=== PATIENT | female | born 1965 | race Caucasian/White ===

== ENCOUNTER 2019-11-03 19:44 | Emergency (ER) | payer BC, SELFPAY ==
[2019-11-03 19:54] VITALS: BP 134/92; PULSE 86; RESP 16; TEMP 37.2; O2SAT 99
--- NOTE | 2019-11-03 19:58 | ED.SKABFB ---
HPI - Skin/Abscess/Foreign Bdy General Chief complaint: Wound/Laceration Stated complaint: laceration Time Seen by Provider: 11/03/19 19:50 Source: patient and RN notes reviewed Mode of arrival: ambulatory Limitations: no limitations History of Present Illness HPI narrative: patient presents today with laceration to left 4th finger pad from an aluminum can 20 mins prior to arrival. Last tetanus was 2012. Currently rates her pain 2/10 and complains of some mild tingling. She has tried no interventions prior to arrival. Related Data Home Medications Medication Instructions Recorded Confirmed aspirin 81 mg tablet,delayed 81 mg PO DAILY 07/28/19 11/03/19 release oxybutynin chloride 10 mg 10 mg PO DAILY 07/28/19 11/03/19 tablet,extended release 24 hr rosuvastatin 5 mg tablet 5 mg PO DAILY 07/28/19 11/03/19 Allergies Allergy/AdvReac Type Severity Reaction Status Date / Time Sulfa (Sulfonamide Allergy Mild turning Verified 11/03/19 19:48 Antibiotics) blue Review of Systems Constitutional: Constitutional: Reports no additional constitutional complaints Eyes: Eyes: Reports no additional eye complaints ENT: Reports system reviewed and no additional complaints, except as documented Cardiovascular: Cardiovascular: Reports no additional cardiovascular complaints Respiratory: Respiratory: Reports no additional respiratory complaints Gastrointestinal: Gastrointestinal: Reports no additional gastrointestinal complaints Genitourinary: Genitourinary: Reports no additional female genitourinary complaints Musculoskeletal: Musculoskeletal: Reports no additional musculoskeletal complaints Integumentary/Breasts: Comments: left 4th finger laceration Neurologic: Comments: tingling to left 4th finger. [facility] Past Medical History Medical History (Updated 11/03/19 @ 20:27 by Nichole Byers, [facility], ) Gastritis Mixed hyperlipidemia OAB (overactive bladder) Thrombocytosis Surgical History Surgical History (Updated 08/02/19 @ 15:49 by Ju Everett MD) Hx of hysterectomy Family History Family History (Updated 02/18/16 @ 23:19 by DOCTOR UNKNOWN) Sibling Cerebrovascular accident Mother Family history of diabetes mellitus in first degree relative Family history of malignant neoplasm of breast in first degree relative Father Family history of diabetes mellitus in first degree relative Social History Social History (Updated 07/28/19 @ 13:25 by Lydia Pino) Smoking status: Never smoker Second hand tobacco smoke exposure: No Alcohol intake: current Drinks per week: 2 Substance use: never Substance use type: does not use Gender identity (if verbalized by the patient): Female Comments All past medical, family, and surgical hx reviewed and is noncontributory to presenting complaint. See nurses notes for further documentation. Exam Const: General: healthy appearing, no acute distress and alert Nutritional Appearance: well nourished Orientation/consciousness: patient oriented x3 HENMT: Head: normal to inspection Eyes: EOM: EOMs intact bilaterally Neck: Neck: normal visual inspection Chest: Chest palpation & inspection: normal inspection of the chest Resp: Effort & Inspection: normal respiratory effort Skin: Wounds: wounds noted Other: 2.5cm full thickness linear laceration to distal left 4th finger pad without nail involvement. Distal sensation intact, capillary refill normal, normal AROM. Moderate active bleeding. Neuro: General: patient oriented x3 Speech: normal speech Extrem: General: normal to inspection (grossly normal except as documented) Psych: Affect: normal affect Attitude: cooperative Course Vital Signs Vital signs: Vital Signs Temperature 98.9 F 11/03/19 19:54 Pulse Rate 86 11/03/19 19:54 Respiratory Rate 16 11/03/19 19:54 Blood Pressure 134/92 H 11/03/19 19:54 Pulse Oximetry 99 11/03/19 19:54 Temperature 98.9
[2019-11-03] MEDS: TETANUS,DIPHTHERIA,AC PERTUSSIS ADULT (0.5 ML) BOOSTRIX IM (20:05)
== END 2019-11-03 20:31 | disposition home or self-care (01) ==
PROVIDERS: Emergency Provider Nurse Practitioner; PCP Family Medicine
DX: S61.215A Laceration without foreign body of left ring finger without damage to nail, initial encounter (principal); W26.8XXA Contact with other sharp object(s), not elsewhere classified, initial encounter; Z23 Encounter for immunization; E78.2 Mixed hyperlipidemia; N32.81 Overactive bladder; D47.3 Essential (hemorrhagic) thrombocythemia; Z79.82 Long term (current) use of aspirin
CPT/HCPCS: 12001; 90471; 90715; 99212; G0463

== ENCOUNTER 2019-11-06 09:19 | Outpatient (CLI) | payer BC, SELFPAY ==
--- NOTE | ~2019-11-06 | XR_ITS ---
EXAMINATION: XR chest 2V DATE: 11/06/2019 09:42 INDICATION: Cough TECHNIQUE: PA and lateral views of the chest are obtained. COMPARISON: 02/25/2014 FINDINGS: The lungs are free of acute opacities. There is no pleural effusion or pneumothorax. The ca rdiomediastinal silhouette is normal. There is mild thoracic spondylosis. IMPRESSION: 1. No acute cardiopulmonary abnormality. Reviewed, dictated and finalized at location A.
== END 2019-11-06 09:20 | disposition home or self-care (01) ==
PROVIDERS: PCP Family Medicine; Visit Provider Family Medicine
DX: R05 Cough (principal)
CPT/HCPCS: 71046

== ENCOUNTER 2022-04-14 18:34 | Inpatient (IN) | payer OTHER, BC, SELFPAY ==
--- NOTE | ~2022-04-14 | XR_ITS ---
XR chest 1V portable 04/15/2022 06:05 Indication: Preop. Patellar fracture. Procedure: AP portable chest Comparison: 11/06/2019 Findings: Heart size normal. No focal air space disease, pulmonary edema, pleural effusion or suspect ed pneumothorax. No acute osseous abnormality. Impression: 1: No acute cardiopulmonary disease. Reviewed, dictated and finalized at location A. Impression: 1: No acute cardiopulmonary disease.
--- NOTE | ~2022-04-14 | XR_ITS ---
XR surgery orthopedic 04/15/2022 11:14 Indication: Intraoperative fixation of patellar fracture Procedure: 11 fluoroscopic views of the patella. 128 seconds of fluoroscopy. Comparison: 04/14/2022 Findings: There are screws and cerclage wires transfixing the patella which is an anatomic alignment post reduction. Impression: 1: Anatomic alignment of the patella status post internal reduction and fixation. Reviewed, dictated and finalized at location A. Impression: 1: Anatomic alignment of the patella status post internal reduction and fixatio n.
--- NOTE | ~2022-04-14 | XR_ITS ---
XR knee RT min 4V 04/14/2022 18:54 Indication: Status post fall with deformity of the right knee Procedure: 4 views right knee Comparison: No prior studies for comparison. Findings: There is a transverse fracture of the patella with about 2.7 cm displacement. Large amount of soft tissue swelling. No tibial or fibular fractures. Femur appears to be intact. Impression: 1: Displaced transverse fracture of the patella. Reviewed, dictated and finalized at location A. Impression: 1: Displaced transverse fracture of the patella.
[2022-04-14 18:34] VITALS: BP 157/108; PULSE 67; RESP 18; TEMP 36.6; O2SAT 98
--- NOTE | 2022-04-14 19:23 | ED.LOWEXIN ---
HPI - Extremity Injury (Lower) General Chief Complaint: Extremity Injury, Lower <Lidia Roldan PA-C - Last Filed: 04/14/22 20:46> Stated Complaint: Fall, Knee Deformity <CONNER Masters Last Filed: 04/14/22 20:46> Time Seen by Provider: 04/14/22 19:09 <Lidia Roldan PA-C - Last Filed: 04/14/22 20:46> Source: patient <CONNER Masters Last Filed: 04/14/22 20:46> Mode of arrival: EMS <CONNER Masters Last Filed: 04/14/22 20:46> Limitations: no limitations <CONNER Masters Last Filed: 04/14/22 20:46> History of Present Illness HPI Narrative: This is a 57-year-old female that presents to the emergency department for right knee pain after an injury just prior to arrival. Reports she slipped and fell forward directly onto the knee. Reports swelling and pain to the area. Reports decreased range of motion. She did not hit her head or lose consciousness. Denies numbness. <CONNER Masters Last Filed: 04/14/22 20:46> Related Data Home Medications: Home Medications Medication Instructions Recorded Confirmed aspirin 81 mg tablet,delayed 81 mg PO DAILY 07/28/19 04/07/22 release (Adult Low Dose Aspirin) melatonin 10 mg capsule 10 mg PO QHS 02/01/21 04/07/22 <CONNER Masters Last Filed: 04/14/22 20:46> Allergies/Adverse Reactions: Allergies Allergy/AdvReac Type Severity Reaction Status Date / Time Sulfa (Sulfonamide Allergy Mild turning Verified 04/14/22 18:37 Antibiotics) blue <CONNER Masters Last Filed: 04/14/22 20:46> Review of Systems Review of Systems: CONSTITUTIONAL: Denies fever MUSCULOSKELETAL: Reports joint pain, and myalgia. NEUROLOGIC: Denies numbness <CONNER Masters Last Filed: 04/14/22 20:46> All systems reviewed & are unremarkable except as noted in HPI and below <Lidia Roldan PA-C - Last Filed: 04/14/22 20:46> PMFSH Past Medical History Medical History: Medical History Gastritis Mixed hyperlipidemia OAB (overactive bladder) Thrombocytosis <Lidia Roldan PA-C - Last Filed: 04/14/22 20:46> Surgical History Surgical History: Surgical History Hx of hysterectomy <Lidia Roldan PA-C - Last Filed: 04/14/22 20:46> Family History Family History: Family History Sibling Cerebrovascular accident Mother Family history of diabetes mellitus in first degree relative Family history of malignant neoplasm of breast in first degree relative Father Family history of diabetes mellitus in first degree relative <Lidia Roldan PA-C - Last Filed: 04/14/22 20:46> Social History Social History: Social History Social History: Single Smoking status: Never smoker Second hand tobacco smoke exposure: No Alcohol intake: current Alcohol use details: occasionally Substance use: never Substance use type: does not use Gender identity (if verbalized by the patient): Female Sexual Orientation (if Verbalized by the Patient): Straight or Heterosexual <CONNER Masters Last Filed: 04/14/22 20:46> Exam Narrative: GENERAL: Well-appearing, well-nourished, and in no acute distress. HEAD: Normocephalic, atraumatic. EYES: EOMI. CHEST: Clear to auscultation. No respiratory distress. No wheezes rales or rhonchi HEART: Regular rate and rhythm. No murmur heard. Normal peripheral pulses. EXTREMITIES: Patient unable to do straight leg lift or bend at the right knee. Severe edema about the right knee anteriorly. Normal DP pulse SKIN: Warm, dry, no rash. NEURO: No focal deficits. Alert and oriented x3. PSYCH: Normal mood and affect <CONNER Masters Last Filed: 04/14/22 20:46> Course KAI WHAKARURUHAU/PA Physician Supervision For thi
[2022-04-14] MEDS: HYDROcodone/acetaminophen (*CRX) 5-325 MG TABLET 1 TAB PO (19:32)
--- NOTE | 2022-04-14 19:57 | ECG_ITS ---
Measurements Intervals [place] Rate: 69 P: 69 TX: 174 QRS: 62 QRSD: 96 T: 57 QT: 401 QTc: 430 Interpretive Statements SINUS RHYTHM BASELINE ARTIFACT- I, III NORMAL ECG NO PREVIOUS ECG AVAILABLE FOR COMPARISON Electronically Signed On 04-15-2022 8:45:24 CDT by Juan Moreira D.O.
[2022-04-14 20:14] LABS: Basophils Absolute Auto 0.1 K/mm3 (0.0-0.1); Basophils Percent Auto 0.9 % (0.2-1.2); Eosinophils Absolute Auto 0.3 K/mm3 (0-0.3); Eosinophils Percent Auto 2.1 % (0-4.4); Hematocrit 42.4 % (37.0-47.0); Immature Granulocyte Absolute 0.04 K/mm3 (0.00-0.031); Immature Granulocyte Percent A 0.3 % (0-0.5); Lymphocytes Absolute Auto 2.09 K/mm3 (0.9-3.2); Lymphocytes Percent Auto 17.4 % (18.3-44.2); Mean Corpuscular Hemoglobin 29.2 pg (26-34); Mean Corpuscular Volume 88.5 fl (80-100); Mean Platelet Volume 9.9 fl (7.4-10.4); Monocytes Absolute Auto 0.5 K/mm3 (0.1-0.6); Monocytes Percent Auto 4.2 % (2.6-8.5); Neutrophils Percent Auto 75.1 % (45.5-73.1); Platelet Count Result 569 k/mm3 (150-375); Red Blood Count 4.79 M/mm3 (4.2-5.4); Red Cell Distribution Width 12.9 % (11.5-14.5)
[2022-04-14 20:23] LABS: Anion Gap 15 mmol/L (8-16); Blood Urea Nitrogen 13 mg/dL (7-17); Calcium 9.3 mg/dL (8.4-10.2); Carbon Dioxide 24 mmol/L (22-30); Chloride 96 mmol/L (98-107); Estimated CRCL calculation 87 ml/min; Estimated Glomerular Filt Rate > 60; Glucose 105 mg/dL (65-110); Potassium 3.8 mmol/L (3.4-5.0); Sodium 135 mmol/L (137-145)
--- NOTE | 2022-04-14 20:40 | PM.IMHP ---
H&P: HPI History of Present Illness Date/Time: 04/14/22 20:40 Chief Complaint: Right knee pain and deformity after a fall. Narrative: This is a pleasant 57-year-old female with essential thrombocytosis, dyslipidemia, and GERD who presented to the ED via EMS for right knee pain and deformity after a fall. Not long prior to arrival, she was leaving work and her left leg slipped forward on the wet pavement causing her to fall hard on to her right knee. She had immediate pain in the knee and did not even try to get herself up as she knew it was fractured due to obvious deformity. Right knee x-ray showed a transverse fracture of the right patella with about 2.7 cm displacement and she is being admitted in this setting for pain control and operative repair tomorrow per Dr. Almonte. She sustained no other injuries in the fall and denies head trauma and loss of consciousness. Review of Systems Review of Systems: Twelve systems were reviewed. Last week she had a fever, sinus congestion, and cough she was diagnosed with a viral illness. SARS-CoV-2 by PCR was negative at that time. Her symptoms have since improved. Less than year ago she was having some chest pain and reports having a negative stress test. She was seen by a bus and trolley dispatcher affiliated with [place] and a coronary CT was reportedly unremarkable, per patient report. She was started on a PPI for presumed GERD and her chest pain symptoms resolved. She denies exertional chest pain shortness a breath. No history of adverse reactions to anesthesia. Except as documented, all other systems were reviewed and are negative. [facility] Past Medical History Medical History (Updated 04/14/22 @ 21:21 by Kelly Blank PA-C) Essential thrombocytosis Gastroesophageal reflux disease Mixed hyperlipidemia Overactive bladder Positive cardiac stress test Negative CT coronary angiogram per patient report, done at [place]. Surgical History Surgical History (Updated 04/14/22 @ 21:21 by Kelly Blank PA-C) History of hysterectomy History of myomectomy Family History Family History Sibling Cerebrovascular accident Mother Family history of diabetes mellitus in first degree relative Family history of malignant neoplasm of breast in first degree relative Father Family history of diabetes mellitus in first degree relative Social History Social History (Updated 04/14/22 @ 21:22 by Kelly Blank PA-C) Social History: Surrogate medical decision maker: Gia Marcos. Code status: Full code. Smoking status: Never smoker Second hand tobacco smoke exposure: No Alcohol intake: current Alcohol use details: Social alcohol use in moderation. Substance use: never Substance use type: does not use Additional living arrangements comments: Lives in [place]. 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 Spiritual care concerns: No Meds Home Medications and Allergies Home Medications Medication Instructions Recorded Confirmed Type aspirin 81 mg tablet,delayed 81 mg PO DAILY 07/28/19 04/14/22 History release (Adult Low Dose Aspirin) fluticasone propionate 50 1 spray intranasal DAILY #16 grams 12/26/21 04/14/22 Rx mcg/actuation nasal spray,suspension azelastine 137 mcg (0.1 %) nasal 137 mcg (0.137 mL) intranasal Q12H 04/07/22 04/14/22 Rx spray aerosol #30 mL omeprazole 40 mg capsule,delayed 40 mg PO DAILY 04/14/22 04/14/22 History release oxybutynin chloride 10 mg 10 mg PO DAILY 04/14/22 04/14/22 History tablet,extended release 24 hr rosuvastatin 5 mg tablet 5 mg PO DAILY 04/14/22 04/14/22 History trazodone 50 mg tablet 50 mg PO HS 04/14/22 04/14/22 History Allergies Allergy/AdvReac Type Severity Reaction Status Date / Time Sulfa (Sulfonamide Allergy Mild turning Verified 04/14/22 21:24 Antibiotics) blue Vital Signs Vital Signs - 24 hr 04/14/22 18:34 04/14/22
[2022-04-14 21:01] VITALS: BP 130/79; PULSE 76; RESP 16; TEMP 36.7; O2SAT 98
[2022-04-14 21:07] LABS: INR 1.1; Prothrombin Time 13.8 Seconds (11.1-14.7)
[2022-04-14 21:08] LABS: Partial Thromboplastin Time 33.8 SECONDS (22.3-36.8)
--- NOTE | 2022-04-14 21:21 | ADMGEN ---
This patient, Kaya Peraza, was admitted to 2 Medical Room 250-01 @2120. Patient/family oriented to hospital policies and general routines including ID bracelet, bed and alarms, visiting hours, pain management, procedures, bathroom and other care routines, personal items, smoking policy, room service/diet, and visiting hours. Information on how to activate the Rapid Response Team has been discussed. Patient/Family are encouraged to report perceived risks to care and to ask questions if they do not understand what they are told or what they should do.
[2022-04-14 23:45] VITALS: BP 135/73; PULSE 75; RESP 20; TEMP 36.9; O2SAT 99
[2022-04-14 23:47] VITALS: BMI 23.6
[2022-04-15] VITALS (13 sets, daily range): BP systolic 97–132; BP diastolic 57–85; PULSE 70–100; RESP 10–20; TEMP 36.2–37.3; O2SAT 94–100
[2022-04-15] MEDS: traZODone HCL 50 MG TABLET PO ×2 (00:06→20:21)
[2022-04-15] MEDS: HYDROcodone/acetaminophen (*CRX) 5-325 MG TABLET 1 TAB PO ×2 (00:07→08:16)
[2022-04-15] MEDS: MORPHINE SULFATE (*CRX) 2 MG/ML INJ IV PUSH (01:42)
[2022-04-15 06:12] LABS: Hematocrit 37.8 % (37.0-47.0); Hemoglobin 12.4 g/dL (12.0-15.0); Mean Corpuscular HGB Conc 32.8 g/dl (32-36); Mean Corpuscular Hemoglobin 28.8 pg (26-34); Mean Corpuscular Volume 87.9 fl (80-100); Mean Platelet Volume 9.8 fl (7.4-10.4); Platelet Count Result 478 k/mm3 (150-375); Red Cell Distribution Width 12.7 % (11.5-14.5); White Blood Count 11.1 K/mm3 (4.5-10.0)
[2022-04-15 06:25] LABS: INR 1.1
[2022-04-15 06:27] LABS: Alanine Aminotransferase 18 U/L (6-35); Alkaline Phosphatase 45 U/L (38-126); Anion Gap 10 mmol/L (8-16); Aspartate Amino Transferase 23 U/L (14-36); Bilirubin,Total 0.4 mg/dL (0.2-1.3); Blood Urea Nitrogen 12 mg/dL (7-17); Calcium 8.6 mg/dL (8.4-10.2); Carbon Dioxide 23 mmol/L (22-30); Chloride 100 mmol/L (98-107); Estimated CRCL calculation 87 ml/min; Estimated Glomerular Filt Rate > 60; Glucose 113 mg/dL (65-110); Potassium 3.6 mmol/L (3.4-5.0); Sodium 133 mmol/L (137-145)
--- NOTE | 2022-04-15 07:22 | PM.CNOR ---
Assessment and Plan Assessment and plan (1) Displaced transverse fracture of right patella: Code(s): S82.031A - Displaced transverse fracture of right patella, initial encounter for closed fracture Status: Acute Plan patient is a 57-year-old female who slipped on wet pavement in a parking lot yesterday and as result came straight down onto the right knee. She noticed immediate swelling over the kneecap with superficial abrasions and was brought to the emergency room where x-rays demonstrated a markedly displaced transverse fracture of the right patella. Fractures edge at the junction of the proximal 2/3 and inferior 1/3 of the patella. No definite comminution is seen on the plain radiographs. there was approximately 23 mm of distraction at the fracture site demonstrating disruption of the extensor mechanism. Her past medical history is significant for thrombocytosis for which she takes baby aspirin daily. I am going to give her 1 today as well as she is at higher risk for DVT from the tourniquet and her immobilization and after surgery will plan to use Eliquis until she is fully mobilized estimate approximately 8 weeks. She is familiar with this drug as her mother used it for atrial fibrillation. her remaining past history is unremarkable. She does see a front desk at [place] for her thrombocytosis and as her platelet count is below 600,000, use of hydroxyurea has been deferred until she is 58. On examination today she has intact sensation and motor function in the foot. She has no swelling the foot or ankle or calf but has prominent swelling over the front of her right knee. There is no blistering of the skin. The skin shows some ecchymosis and some very superficial abrasions over the center of the knee cap. A standard median parapatellar incision should avoid these superficial abrasions which are dry at this time. The she is completely alert and oriented denies any other injury. Impression: Patient has a markedly displaced transverse right patellar fracture with extensor mechanism disruption. She will require open reduction internal fixation to achieve an acceptable result with this injury. Have discussed the procedure with her in detail and I explained specifically the my treatment preference for this pattern using cannulated screws and 18 gauge wire in a tension band fashion. I explained that most patients desire hardware removal we usually postpone that for about a year. Risks of complications such as infection, blood clots, pulmonary embolism, posttraumatic arthritis, and loss of fixation with distraction at the fracture site and the importance of compliance with the postoperative activity regimen and instructions were discussed. Her postoperative recovery was explained. Her questions were answered. We will proceed this morning as discussed. History of Present Illness HPI Consult date: 04/15/22 Chief complaint: Right patellar fracture PMFSH Past Medical History Medical History (Updated 04/14/22 @ 21:21 by Kelly Blank PA-C) Essential thrombocytosis Gastroesophageal reflux disease Mixed hyperlipidemia Overactive bladder Positive cardiac stress test Negative CT coronary angiogram per patient report, done at [place]. Surgical History Surgical History (Updated 04/14/22 @ 21:21 by Kelly Blank PA-C) History of hysterectomy History of myomectomy Family History Family History Sibling Cerebrovascular accident Mother Family history of diabetes mellitus in first degree relative Family history of malignant neoplasm of breast in first degree relative Father Family history of diabetes mellitus in first degree relative Social History Social History (Updated 04/14/22 @ 21:22 by Kelly Blank PA-C) Social History: Surrogate medical decision maker: Gia Marcos. Code status: Full code. Smoking status: Never smoker Second garrido
[2022-04-15 07:23] LABS: Partial Thromboplastin Time 31.5 SECONDS (22.3-36.8)
--- NOTE | 2022-04-15 07:53 | WPDHPUPDATE1 ---
History and Physical Update Update Date/Time: 04/15/22 07:53 History and Physical has been reviewed, including an updated exam of the patient. There are NO changes in the patient's condition. Risks, benefits, and alternatives have been discussed and questions answered. Patient agrees to proceed with procedure.
--- NOTE | 2022-04-15 08:33 | WPDANESEPPF ---
Anes - Initial Pre Proc Eval Procedure: Operation Date: 04/15/22 08:30 Proposed Procedures p ORIF Patellar Fracture(Right) - Kevon Almonte MD Date/Time: 04/15/22 08:33 Surgeon: Andrew Costa MD Pre Op Diagnosis: Right patellar fracture Patient Data Age: 57 Gender: F Height: 1.73 m Weight: 70.3 kg Last Vital Signs Temp 36.8 C 04/15/22 06:00 Pulse 70 04/15/22 06:00 Resp 20 04/15/22 06:00 BP 105/65 04/15/22 06:00 Pulse Ox 99 04/15/22 06:00 O2 Del Method Room Air 04/14/22 18:34 Allergies Allergy/AdvReac Type Severity Reaction Status Date / Time Sulfa (Sulfonamide Allergy Mild turning Verified 04/14/22 21:24 Antibiotics) blue Home Medications Medication Instructions Recorded Confirmed Type aspirin 81 mg tablet,delayed 81 mg PO DAILY 07/28/19 04/14/22 History release (Adult Low Dose Aspirin) fluticasone propionate 50 1 spray intranasal DAILY #16 grams 12/26/21 04/14/22 Rx mcg/actuation nasal spray,suspension azelastine 137 mcg (0.1 %) nasal 137 mcg (0.137 mL) intranasal Q12H 04/07/22 04/14/22 Rx spray aerosol #30 mL omeprazole 40 mg capsule,delayed 40 mg PO DAILY 04/14/22 04/14/22 History release oxybutynin chloride 10 mg 10 mg PO DAILY 04/14/22 04/14/22 History tablet,extended release 24 hr rosuvastatin 5 mg tablet 5 mg PO DAILY 04/14/22 04/14/22 History trazodone 50 mg tablet 50 mg PO HS 04/14/22 04/14/22 History Laboratory Tests 04/14/22 04/14/22 04/14/22 20:09 20:09 20:30 WBC 12.0 K/mm3 H K/mm3 (4.5-10.0) RBC 4.79 M/mm3 M/mm3 (4.2-5.4) Hgb 14.0 g/dL g/dL (12.0-15.0) Hct 42.4 % % (37.0-47.0) MCV 88.5 fl fl (80-100) MCH 29.2 pg pg (26-34) MCHC 33.0 g/dl g/dl (32-36) RDW 12.9 % % (11.5-14.5) Plt Count 569 k/mm3 H k/mm3 (150-375) MPV 9.9 fl fl (7.4-10.4) Immature Gran % (Auto) 0.3 % % (0-0.5) Neut % (Auto) 75.1 % H % (45.5-73.1) Lymph % (Auto) 17.4 % L % (18.3-44.2) [place] % (Auto) 4.2 % % (2.6-8.5) Eos % (Auto) 2.1 % % (0-4.4) Baso % (Auto) 0.9 % % (0.2-1.2) Lymph # (Auto) 2.09 K/mm3 K/mm3 (0.9-3.2) [place] # (Auto) 0.5 K/mm3 K/mm3 (0.1-0.6) Eos # (Auto) 0.3 K/mm3 K/mm3 (0-0.3) Baso # (Auto) 0.1 K/mm3 K/mm3 (0.0-0.1) Abs Immat Gran (auto) 0.04 K/mm3 H K/mm3 (0.00-0.031) Absolute Neuts (auto) 9.0 K/mm3 H K/mm3 (1.3-6.7) Absolute Nucleated RBC 0.0 K/mm3 K/mm3 (0.0-0.012) Nucleated RBC % 0.0 % % (0.0-0.2) PT 13.8 Seconds Seconds (11.1-14.7) INR 1.1 APTT 33.8 SECONDS SECONDS (22.3-36.8) Sodium 135 mmol/L L mmol/L (137-145) Potassium 3.8 mmol/L mmol/L (3.4-5.0) Chloride 96 mmol/L L mmol/L (98-107) Carbon Dioxide 24 mmol/L mmol/L (22-30) Anion Gap 15 mmol/L mmol/L (8-16) BUN 13 mg/dL mg/dL (7-17) Creatinine 0.60 mg/dL L mg/dL (0.7-1.0) Estim Creat Clear Calc 87 ml/min ml/min Estimated GFR > 60 (59 - ) Glucose 105 mg/dL mg/dL (65-110) Calcium 9.3 mg/dL mg/dL (8.4-10.2) Total Bilirubin AST ALT Alkaline Phosphatase Total Protein Albumin 04/15/22 04/15/22 04/15/22 05:46 05:46 05:46 WBC 11.1 K/mm3 H K/mm3 (4.5-10.0) RBC 4.30 M/mm3 M/mm3 (4.2-5.4) Hgb 12.4 g/dL g/dL (12.0-15.0) Hct 37.8 % % (37.0-47.0) MCV 87.9 fl fl (80-100) MCH 28.8 pg pg (26-34) MCHC 32.8 g/dl g/dl (32-36) RDW 12.7 % % (11.5-14.5) Plt Count 478 k/mm3 H k/mm3 (150-375) MPV 9.8 fl fl (7.4-10.4) Immature Gran % (Auto) Neut % (Auto)
[2022-04-15] MEDS: ceFAZolin 2 GM/D5W 50 ML 2 GM/50 ML BAG IVPB (08:59)
[2022-04-15 09:58] LABS: Vitamin D 25 Hydroxy 56.2 ng/mL
[2022-04-15] MEDS: ceFAZolin SODIUM 1 GM VIAL IV PUSH (10:23)
[2022-04-15] MEDS: ceFAZolin SODIUM 1 GM VIAL (11:20)
--- NOTE | 2022-04-15 11:36 | W.PM.PROC2 ---
Procedure Note - Detailed Date of Procedure 04/15/22 Pre-op Diagnosis Right patellar fracture Post-op Diagnosis Same Procedure Performed ORIF right patellar fracture with cannulated screw tension band technique Surgeon Kevon Almonte MD Electronic Publishing Specialist [place] Description of Procedure Patient was brought to the operating room and general anesthesia was administered. She received 2 g of Ancef weight based vancomycin preoperatively. Under anesthesia there was a negative anterior posterior drawer and normal stability to varus valgus stress. The right lower extremity was prepped draped usual fashion all skin covered with Ioban. Limb was exsanguinated tourniquet elevated to 250 mmHg and a 4 in longitudinal incision was made centered over patella. The fracture was widely displaced and there was transverse tearing of the entire with the the medial and lateral retinacula. I did not appreciate any comminution. Bone quality seemed very good. The articular cartilage surfaces were intact except for the transverse fracture. Trochlea looked normal. Large volume of hematoma was removed from the knee and hematoma washed out with Ancef solution. Hematoma was removed from the surfaces of the patellar fracture and an anatomic reduction was achieved and held with tenaculum style bone clamp centrally and small tenaculum style bone clamps medially laterally and perfect anatomic reduction was achieved. Fluoroscopic lateral view showed anatomic reduction of the subchondral bone line throughout. The 2 guidewires were inserted from distal to proximal. The distal fragment was smaller. It comprised the distal 1/3 of the patellar length. However the bone quality I felt was very good therefore we used a standard tension band type technique. Two guidewires from the 4-0 cancellous screw set were placed. We position of wires perpendicular fracture at the appropriate depth on the lateral view and verified absence of subchondral bone penetration. With the wires in optimal position we then proceeded to drill the medial wire all the way through from inferior to superior and we placed a 30 6 mm 4.0 cannulated cancellous screw which I thought was 2 mm longer than optimal and we switched it to a 34 head this obtained very good purchase and interfragmentary compression and we removed the medial bone clamp. The central bone clamp also was removed. We drilled and placed a 30 mm screw over the lateral of the 2 wires also obtaining excellent interfragmentary compression. With this done we passed a 16 gauge wire through each screw longitudinally. The wire was brought over the anterior surface of the patella through the screw and brought back proximally where the wire was twisted tight on the medial lateral side. We took fluoroscopic views and I felt that the wire was sitting on too much tendon tissue on the lateral wire and I removed this wire and passed another wire and we split tendon fires of wires so that the wire coming out of the superior drill hole on the lateral side and would sit on much less soft tissue we tightened and twist tightened this wire as well and final x-rays were obtained which showed perfect alignment and excellent interfragmentary compression. On the view that showed the very apex we could see about a mm of distraction from the tightening anteriorly and this was considered acceptable. The knots were bent into the longitudinal slit in quadriceps tissue and the knee flexed 90? and knots were not prominent. The we had put the tourniquet down at 58 minutes. The lateral retinaculum was loosely closed with 2. Vicryl was the medial retinaculum with 2. Ethibond. We were able to approximate some of the anterior aponeurosis fibers that had pulled off the anterior surface of the proximal patellar tendon using 2. Vicryl suture. The wound was again irrigated with antibiotic solution closed with 2 subcutaneous Vicryl 3-0 subcuticular Monocryl and glue. EBL was about 25 cc not including the
[2022-04-15] MEDS: LACTATED RINGERS 1,000 ML 30 ML IV CONT (11:47)
[2022-04-15] MEDS: fentaNYL CITRATE INJ (*CRX) 100 MCG/2 ML VIAL 25 MCG IV PUSH ×8 (11:55→12:30)
[2022-04-15] MEDS: ONDANSETRON INJ 4 MG/2 ML VIAL IV PUSH (12:12)
[2022-04-15] MEDS: IBUPROFEN IV 800 MG/200 ML 800 MG/200 ML BAG 400 MG IVPB ×2 (12:25→20:20)
[2022-04-15] MEDS: HYDROmorphone HCL INJ (*CRX) 1 MG/ML SYR 0.25 MG IV PUSH ×4 (12:39→13:14)
[2022-04-15] MEDS: diphenhydrAMINE HCl INJ 50 MG/ML VIAL 12.5 MG IV PUSH (12:39)
[2022-04-15] MEDS: SODIUM CHLORIDE 0.9% IV 1,000 ML 125 ML IV CONT ×2 (14:00→20:21)
[2022-04-15] MEDS: FLUTICASONE PROPIONATE 0.05% NA SPR 16 GM BTL (*BKC) 1 SPRAY NASAL (14:01)
[2022-04-15] MEDS: PANTOPRAZOLE 40 MG TABLET PO ×2 (14:01→17:45)
[2022-04-15] MEDS: ROSUVASTATIN 5 MG TABLET PO (14:01)
[2022-04-15] MEDS: oxyCODONE HCL (*CRX) 5 MG TAB IR PO ×3 (14:01→21:22)
[2022-04-15] MEDS: AZELASTINE HCL NASAL 0.1% 137 MCG/SPR 30 ML BTL 1 SPRAY NASAL ×2 (14:01→20:20)
--- NOTE | 2022-04-15 15:45 | PM.IMPN ---
Progress Note: A&P Assessment and Plan (1) Displaced transverse fracture of right patella: Code(s): S82.031A - Displaced transverse fracture of right patella, initial encounter for closed fracture Status: Acute Assessment and Plan: POD 0 Post op care by ortho Non weight bearing at this time Ice packs per surgery Pain medications ordered Zofran for nausea PT/OT Non-Weight bearing status DVT per ortho Eliquis 2.5mg PO Q12H (2) Essential thrombocytosis: Code(s): D47.3 - Essential (hemorrhagic) thrombocythemia Status: Acute Assessment and Plan: Current PLT 478 Followed by a program manager environmental planning at [facility] Aspirin restarted DVT prophylaxis ordered by ortho (3) Overactive bladder: Code(s): N32.81 - Overactive bladder Status: Acute Assessment and Plan: No acute issues Continue oxybutynin. (4) Hyperlipidemia: Code(s): E78.5 - Hyperlipidemia, unspecified Status: Acute Assessment and Plan: Continue rosuvastatin LFTs ok (5) Gastroesophageal reflux disease: Code(s): K21.9 - Gastro-esophageal reflux disease without esophagitis Status: Acute Assessment and Plan: Continue PPI. Time Spent With Patient Time with patient: Greater than 35 minutes Subjective Date/time seen: 04/15/22 15:45 Interval history: 04/15/22 1545 Patient seems to be doing well right now. Her niece is in the room. She little nervous about going home due to the fact that she lives by herself. She denies having any pain at this time. She understands her restrictions. She denies any chest pain, shortness of breath, nausea, vomiting, diarrhea, constipation, weakness or fatigue. 04/14/22? 20:40 This is a pleasant 57-year-old female with essential thrombocytosis, dyslipidemia, and GERD who presented to the ED via EMS for right knee pain and deformity after a fall. Not long prior to arrival, she was leaving work and her left leg slipped forward on the wet pavement causing her to fall hard on to her right knee. She had immediate pain in the knee and did not even try to get herself up as she knew it was fractured due to obvious deformity. Right knee x-ray showed a transverse fracture of the right patella with about 2.7 cm displacement and she is being admitted in this setting for pain control and operative repair tomorrow per Dr. Almonte. She sustained no other injuries in the fall and denies head trauma and loss of consciousness. Review of Systems Review of Systems: All systems reviewed & are unremarkable except as noted in HPI and below Exam Const: General: cooperative, healthy appearing, no acute distress, well developed, alert and awake Nutritional Appearance: well nourished Orientation/consciousness: patient oriented x3 Limitations: no limitations HENMT: Head: normal to inspection Ears: hearing grossly normal bilaterally General nose exam: Normal external nose present Mouth: Yes Normal oral and palatal mucosa present, Yes lip normal and Yes tongue normal Teeth and gingiva: abnormal tooth and associated gingiva and poor dentition Eyes: General: appearance normal, both eyes and all related structures Neck: Neck: normal visual inspection, full ROM, trachea midline and supple Chest: Chest palpation & inspection: normal inspection of the chest Resp: Effort & Inspection: normal respiratory effort and able to speak in complete sentences Auscultation: clear to auscultation bilaterally Cardio: Jugular venous distension: no JVD Rate: regular rate Rhythm: regular rhythm Heart sounds: S1 normal heart sound present and S2 normal heart sound present Peripheral pulses: Peripheral pulses 2+ throughout GI: Inspection: normal to inspection GI Palp: Yes Soft to palpation and No Tenderness to palpation present (GI) Auscultation: normal bowel sounds Skin: General skin exam: normal color and no rashes or lesions noted Lesions: no lesions
[2022-04-15] MEDS: SENNA/DOCUSATE SODIUM TABLET 2 TAB PO (17:45)
[2022-04-15] MEDS: ACETAMINOPHEN 500 MG TABLET 1000 MG PO ×2 (18:17→23:46)
[2022-04-16] MEDS: oxyCODONE HCL (*CRX) 5 MG TAB IR PO ×6 (01:29→21:43)
[2022-04-16 01:37] VITALS: BP 113/62; PULSE 92; RESP 20; TEMP 36.2; O2SAT 98
[2022-04-16] MEDS: ACETAMINOPHEN 500 MG TABLET 1000 MG PO ×4 (05:33→23:23)
[2022-04-16 05:57] VITALS: BP 104/44; PULSE 96; RESP 18; TEMP 36.6; O2SAT 97
[2022-04-16 06:10] LABS: Basophils Absolute Auto 0.1 K/mm3 (0.0-0.1); Basophils Percent Auto 0.5 % (0.2-1.2); Eosinophils Absolute Auto 0.1 K/mm3 (0-0.3); Eosinophils Percent Auto 0.4 % (0-4.4); Hematocrit 34.5 % (37.0-47.0); Hemoglobin 10.8 g/dL (12.0-15.0); Immature Granulocyte Absolute 0.05 K/mm3 (0.00-0.031); Immature Granulocyte Percent A 0.4 % (0-0.5); Lymphocytes Absolute Auto 1.92 K/mm3 (0.9-3.2); Lymphocytes Percent Auto 15.6 % (18.3-44.2); Mean Corpuscular HGB Conc 31.3 g/dl (32-36); Mean Corpuscular Hemoglobin 28.6 pg (26-34); Mean Corpuscular Volume 91.3 fl (80-100); Monocytes Percent Auto 7.9 % (2.6-8.5); Neutrophils Absolute Auto 9.2 K/mm3 (1.3-6.7); Neutrophils Percent Auto 75.2 % (45.5-73.1); Platelet Count Result 426 k/mm3 (150-375); Red Blood Count 3.78 M/mm3 (4.2-5.4); Red Cell Distribution Width 12.9 % (11.5-14.5); White Blood Count 12.3 K/mm3 (4.5-10.0)
[2022-04-16 06:39] LABS: Alanine Aminotransferase 16 U/L (6-35); Albumin Level 3.6 g/dL (3.5-5.1); Alkaline Phosphatase 51 U/L (38-126); Anion Gap 8 mmol/L (8-16); Aspartate Amino Transferase 22 U/L (14-36); Bilirubin,Total 0.2 mg/dL (0.2-1.3); Blood Urea Nitrogen 8 mg/dL (7-17); Calcium 8.3 mg/dL (8.4-10.2); Carbon Dioxide 27 mmol/L (22-30); Chloride 105 mmol/L (98-107); Estimated CRCL calculation 75 ml/min; Estimated Glomerular Filt Rate > 60; Glucose 106 mg/dL (65-110); Potassium 3.3 mmol/L (3.4-5.0); Sodium 140 mmol/L (137-145)
--- NOTE | 2022-04-16 08:15 | PM.IMPN ---
Progress Note: A&P Assessment and Plan (1) Displaced transverse fracture of right patella: Code(s): S82.031A - Displaced transverse fracture of right patella, initial encounter for closed fracture Status: Acute Assessment and Plan: POD 1 Post op care by ortho Non weight bearing at this time Ice packs per surgery Pain medications ordered Zofran for nausea PT/OT Non-Weight bearing status DVT per ortho Eliquis 2.5mg PO Q12H (2) Essential thrombocytosis: Code(s): D47.3 - Essential (hemorrhagic) thrombocythemia Status: Acute Assessment and Plan: Current PLT 426 Followed by a suppository molding machine operator at [facility] Aspirin restarted DVT prophylaxis ordered by ortho (3) Overactive bladder: Code(s): N32.81 - Overactive bladder Status: Acute Assessment and Plan: No acute issues Continue oxybutynin. (4) Hyperlipidemia: Code(s): E78.5 - Hyperlipidemia, unspecified Status: Acute Assessment and Plan: Continue rosuvastatin LFTs ok (5) Gastroesophageal reflux disease: Code(s): K21.9 - Gastro-esophageal reflux disease without esophagitis Status: Acute Assessment and Plan: Continue PPI. Time Spent With Patient Time with patient: 25 - 35 minutes Subjective Date/time seen: 04/16/22 08:15 Interval history: 04/16/22 0815 Patient rest in bed. She denies any current pain. She has been tolerating food. She stated that she has been up and down all night urinating. She only complains of being tired. She denies any chest pain, shortness of breath, nausea, vomiting, diarrhea or constipation 04/15/22 1545 Patient seems to be doing well right now. Her niece is in the room. She little nervous about going home due to the fact that she lives by herself. She denies having any pain at this time. She understands her restrictions. She denies any chest pain, shortness of breath, nausea, vomiting, diarrhea, constipation, weakness or fatigue. 04/14/22? 20:40 This is a pleasant 57-year-old female with essential thrombocytosis, dyslipidemia, and GERD who presented to the ED via EMS for right knee pain and deformity after a fall. Not long prior to arrival, she was leaving work and her left leg slipped forward on the wet pavement causing her to fall hard on to her right knee. She had immediate pain in the knee and did not even try to get herself up as she knew it was fractured due to obvious deformity. Right knee x-ray showed a transverse fracture of the right patella with about 2.7 cm displacement and she is being admitted in this setting for pain control and operative repair tomorrow per Dr. Almonte. She sustained no other injuries in the fall and denies head trauma and loss of consciousness. Review of Systems Review of Systems: All systems reviewed & are unremarkable except as noted in HPI and below Exam Const: General: cooperative, healthy appearing, no acute distress, well developed, alert and awake Nutritional Appearance: well nourished Orientation/consciousness: patient oriented x3 Limitations: no limitations HENMT: Head: normal to inspection Ears: hearing grossly normal bilaterally General nose exam: Normal external nose present Mouth: Yes Normal oral and palatal mucosa present, Yes lip normal and Yes tongue normal Teeth and gingiva: abnormal tooth and associated gingiva and poor dentition Eyes: General: appearance normal, both eyes and all related structures Neck: Neck: normal visual inspection, full ROM, trachea midline and supple Chest: Chest palpation & inspection: normal inspection of the chest Resp: Effort & Inspection: normal respiratory effort and able to speak in complete sentences Auscultation: clear to auscultation bilaterally Cardio: Jugular venous distension: no JVD Rate: regular rate Rhythm: regular rhythm Heart sounds: S1 normal heart sound present and S2 normal heart sound prese
[2022-04-16] MEDS: MORPHINE SULFATE (*CRX) 2 MG/ML INJ IV PUSH ×2 (09:01→23:28)
[2022-04-16] MEDS: ASPIRIN 81 MG ENTERIC TABLET PO (09:03)
[2022-04-16] MEDS: ROSUVASTATIN 5 MG TABLET PO (09:03)
[2022-04-16] MEDS: SENNA/DOCUSATE SODIUM TABLET 2 TAB PO ×2 (09:04→17:00)
[2022-04-16] MEDS: FLUTICASONE PROPIONATE 0.05% NA SPR 16 GM BTL (*BKC) 1 SPRAY NASAL (09:04)
[2022-04-16] MEDS: polyethylene glycoL 3350 17 GM POWD.PACK PO (09:04)
[2022-04-16] MEDS: AZELASTINE HCL NASAL 0.1% 137 MCG/SPR 30 ML BTL 1 SPRAY NASAL ×2 (09:04→21:52)
[2022-04-16] MEDS: PANTOPRAZOLE 40 MG TABLET PO ×2 (09:04→17:00)
[2022-04-16] MEDS: APIXABAN 2.5 MG TABLET PO ×2 (09:04→21:52)
[2022-04-16 10:17] VITALS: BP 120/75; PULSE 87; RESP 18; TEMP 37; O2SAT 100
[2022-04-16 14:32] VITALS: BP 109/58; PULSE 87; RESP 18; TEMP 36.8; O2SAT 100
--- NOTE | 2022-04-16 18:00 | PM.PNORT ---
Progress Note: A&P Assessment and Plan (1) Displaced transverse fracture of right patella: Code(s): S82.031A - Displaced transverse fracture of right patella, initial encounter for closed fracture Status: Acute Plan Patient is postop day 1. After open reduction internal fixation of right patellar fracture. She is doing well. She found it quite difficult to transfer she has a lot of pain with that does not feel safe and she would like to go to rehab for 1 or 2 weeks to get better at mobilization with a walker and transfers. She was by herself. She has a fair amount of bruising over the anterior aspect of the knee and moderate swelling there. No swelling in the calf ankle or foot. She has the foot pumps in place. Jesus has applied new hinged knee brace locked into extension it fits her very well and does a nice job supporting her knee in extension. We will ask the care coordination people to arrange for rehab placement tomorrow. Understand they have been talking to her about it already. Subjective Subjective Date/Time Seen: 04/16/22 18:00 Objective Data Vital Signs Vital Signs: Vital Signs - 24 hr 04/15/22 21:06 04/15/22 20:00 04/16/22 01:37 Temperature 36.2 C L 36.2 C L Pulse Rate 87 92 Respiratory Rate 18 20 Blood Pressure 125/67 113/62 Pulse Oximetry 95 98 Oxygen Delivery Room Air 04/16/22 05:57 04/16/22 07:46 04/16/22 08:41 Temperature 36.6 C Pulse Rate 96 Respiratory Rate 18 Blood Pressure 104/44 L Pulse Oximetry 97 Oxygen Delivery Room Air Room Air 04/16/22 10:17 04/16/22 14:32 Temperature 37.0 C 36.8 C Pulse Rate 87 87 Respiratory Rate 18 18 Blood Pressure 120/75 109/58 L Pulse Oximetry 100 100 Oxygen Delivery Intake/Output Intake/Output: Intake & Output 04/13/22 04/14/22 04/15/22 04/16/22 23:59 23:59 23:59 23:59 Intake Total 3210 2480 Output Total 4100 2250 Balance -890 230 Meds/Results Medications: Active Medications Generic Name Dose Route Start Last Admin Trade Name Freq PRN Reason Stop Dose Admin Acetaminophen 1,000 mg 04/15/22 18:00 04/16/22 17:00 Acetaminophen 500 Mg Tablet PO 1,000 mg Q6H OLVIN Administration Apixaban 2.5 mg 04/16/22 09:00 04/16/22 09:04 Apixaban 2.5 Mg Tablet PO 2.5 mg Q12HR OLVIN Administration Aspirin 81 mg 04/16/22 09:00 04/16/22 09:03 Aspirin 81 Mg Enteric Tablet PO 81 mg DAILY OLVIN Administration Azelastine HCl 1 spray 04/15/22 09:00 04/16/22 09:04 Azelastine Hcl Nasal 0.1% 137 Mcg/Spr 30 Ml Btl NASAL 1 spray Q12HR OLVIN Administration Fluticasone Propionate 1 spray 04/15/22 09:00 04/16/22 09:04 Fluticasone Propionate 0.05% Na Spr 16 Gm Btl (*Bkc) NASAL 1 spray DAILY OLVIN Administration Morphine Sulfate 2 mg 04/15/22 13:27 04/16/22 09:01 Morphine Sulfate (*Crx) 2 Mg/Ml Inj IV PUSH 2 mg Q1H PRN Administration Pain Rated 7-10 Ondansetron HCl 4 mg 04/15/22 08:36 04/15/22 12:12 Ondansetron Inj 4 Mg/2 Ml Vial IV PUSH 4 mg ONCE PRN Administration Nausea Oxybutynin Chloride 10 mg 04/15/22 09:00 04/16/22 09:04 Oxybutynin Chloride Xl 5 Mg Tab.Er.24 PO 10 mg DAILY OLVIN Administration Oxycodone HCl 5 mg 04/15/22 13:27 04/16/22 17:01 Oxycodone Hcl (*Crx) 5 Mg Tab Ir PO 5 mg Q4H OLVIN Administration Pantoprazole Sodium 40 mg 04/15/22 09:00 04/16/22 17:00 Pantoprazole 40 Mg Tablet PO 40 mg BID OLVIN Administration Polyethylene Glycol 17 gm 04/16/22 09:00 04/16/22 09:04 Polyethylene Glycol 3350 17 Gm Powd.Pack PO 17 gm QAM OLVIN Administration Rosuvastatin Calcium 5 mg 04/15/22 09:00 04/16/22 09:03 Rosuvastatin 5 Mg Tablet PO 5 mg DAILY OLVIN Administration Senna/Docusate Sodium 2 tab 04/15/22 17:00 04/16/22 17:00 Senna/Docusate Sodium Tablet PO 2 tab BID OLVIN Administration Trazodone HCl 50 mg 04/14/22 23:40 04/15/22 20:21 Trazodone Hcl 50 Mg Tablet PO 50 mg H
[2022-04-16 21:09] VITALS: BP 121/67; PULSE 90; RESP 18; TEMP 37.3; O2SAT 98
[2022-04-16] MEDS: traZODone HCL 50 MG TABLET PO (21:52)
[2022-04-17] MEDS: oxyCODONE HCL (*CRX) 5 MG TAB IR PO ×6 (01:16→20:36)
[2022-04-17 05:28] LABS: Basophils Absolute Auto 0.1 K/mm3 (0.0-0.1); Basophils Percent Auto 0.8 % (0.2-1.2); Eosinophils Absolute Auto 0.2 K/mm3 (0-0.3); Hemoglobin 9.8 g/dL (12.0-15.0); Immature Granulocyte Absolute 0.05 K/mm3 (0.00-0.031); Immature Granulocyte Percent A 0.5 % (0-0.5); Lymphocytes Absolute Auto 2.45 K/mm3 (0.9-3.2); Lymphocytes Percent Auto 26.9 % (18.3-44.2); Mean Corpuscular HGB Conc 32.7 g/dl (32-36); Mean Corpuscular Hemoglobin 29.2 pg (26-34); Mean Corpuscular Volume 89.3 fl (80-100); Mean Platelet Volume 9.8 fl (7.4-10.4); Monocytes Absolute Auto 0.7 K/mm3 (0.1-0.6); Monocytes Percent Auto 7.8 % (2.6-8.5); Neutrophils Absolute Auto 5.7 K/mm3 (1.3-6.7); Platelet Count Result 369 k/mm3 (150-375); Red Blood Count 3.36 M/mm3 (4.2-5.4); White Blood Count 9.1 K/mm3 (4.5-10.0)
[2022-04-17 05:39] LABS: Alanine Aminotransferase 13 U/L (6-35); Albumin Level 3.4 g/dL (3.5-5.1); Alkaline Phosphatase 44 U/L (38-126); Anion Gap 8 mmol/L (8-16); Aspartate Amino Transferase 21 U/L (14-36); Bilirubin,Total 0.4 mg/dL (0.2-1.3); Blood Urea Nitrogen 9 mg/dL (7-17); Calcium 8.5 mg/dL (8.4-10.2); Carbon Dioxide 28 mmol/L (22-30); Chloride 102 mmol/L (98-107); Estimated CRCL calculation 75 ml/min; Estimated Glomerular Filt Rate > 60; Glucose 103 mg/dL (65-110); Magnesium 1.9 mg/dL (1.6-2.3); Potassium 3.3 mmol/L (3.4-5.0); Sodium 138 mmol/L (137-145)
[2022-04-17] MEDS: ACETAMINOPHEN 500 MG TABLET 1000 MG PO ×3 (05:46→17:26)
[2022-04-17 05:59] VITALS: BP 120/61; PULSE 84; RESP 18; TEMP 36.9; O2SAT 98
[2022-04-17] MEDS: PANTOPRAZOLE 40 MG TABLET PO ×2 (09:30→17:26)
[2022-04-17] MEDS: SENNA/DOCUSATE SODIUM TABLET 2 TAB PO ×2 (09:30→17:26)
[2022-04-17] MEDS: ASPIRIN 81 MG ENTERIC TABLET PO (09:30)
[2022-04-17] MEDS: polyethylene glycoL 3350 17 GM POWD.PACK PO (09:30)
[2022-04-17] MEDS: ROSUVASTATIN 5 MG TABLET PO (09:30)
[2022-04-17] MEDS: AZELASTINE HCL NASAL 0.1% 137 MCG/SPR 30 ML BTL 1 SPRAY NASAL ×2 (09:31→20:36)
[2022-04-17] MEDS: APIXABAN 2.5 MG TABLET PO ×2 (09:31→20:36)
[2022-04-17] MEDS: FLUTICASONE PROPIONATE 0.05% NA SPR 16 GM BTL (*BKC) 1 SPRAY NASAL (09:31)
[2022-04-17 09:37] VITALS: O2SAT 96
--- NOTE | 2022-04-17 11:54 | PM.PNORT ---
Subjective Subjective Date/Time Seen: 04/17/22 11:54 Postop day 2 patient is alert. Pain is well controlled. Care coordination is working on rehab facility. Her right knee she has moderate swelling and ecchymosis. Dressing is dry. There is no swelling in the calf or the foot. Brace is intact and on properly. Spoke with patient about her recovery and the length of time it is going to take. This point we will wait until she is accepted to rehab facility. He\It would not be advisable for the patient to go home due to the fact she lives alone and has no assistance. Objective Data Vital Signs Vital Signs: Vital Signs - 24 hr 04/16/22 14:32 04/16/22 21:09 04/16/22 20:00 Temperature 36.8 C 37.3 C Pulse Rate 87 90 Respiratory Rate 18 18 Blood Pressure 109/58 L 121/67 Pulse Oximetry 100 98 Oxygen Delivery Room Air 04/17/22 05:59 04/17/22 09:37 Temperature 36.9 C Pulse Rate 84 Respiratory Rate 18 Blood Pressure 120/61 Pulse Oximetry 98 96 Oxygen Delivery Room Air Intake/Output Intake/Output: Intake & Output 04/14/22 04/15/22 04/16/22 04/17/22 23:59 23:59 23:59 23:59 Intake Total 3210 2480 180 Output Total 4100 3350 550 Balance -890 -870 -370 Meds/Results Medications: Active Medications Generic Name Dose Route Start Last Admin Trade Name Freq PRN Reason Stop Dose Admin Acetaminophen 1,000 mg 04/15/22 18:00 04/17/22 05:46 Acetaminophen 500 Mg Tablet PO 1,000 mg Q6H OLVIN Administration Apixaban 2.5 mg 04/16/22 09:00 04/17/22 09:31 Apixaban 2.5 Mg Tablet PO 2.5 mg Q12HR OLVIN Administration Aspirin 81 mg 04/16/22 09:00 04/17/22 09:30 Aspirin 81 Mg Enteric Tablet PO 81 mg DAILY OLVIN Administration Azelastine HCl 1 spray 04/15/22 09:00 04/17/22 09:31 Azelastine Hcl Nasal 0.1% 137 Mcg/Spr 30 Ml Btl NASAL 1 spray Q12HR OLVIN Administration Fluticasone Propionate 1 spray 04/15/22 09:00 04/17/22 09:31 Fluticasone Propionate 0.05% Na Spr 16 Gm Btl (*Bkc) NASAL 1 spray DAILY OLVIN Administration Morphine Sulfate 2 mg 04/15/22 13:27 04/16/22 23:28 Morphine Sulfate (*Crx) 2 Mg/Ml Inj IV PUSH 2 mg Q1H PRN Administration Pain Rated 7-10 Ondansetron HCl 4 mg 04/15/22 08:36 04/15/22 12:12 Ondansetron Inj 4 Mg/2 Ml Vial IV PUSH 4 mg ONCE PRN Administration Nausea Oxybutynin Chloride 10 mg 04/15/22 09:00 04/17/22 09:30 Oxybutynin Chloride Xl 5 Mg Tab.Er.24 PO 10 mg DAILY OLVIN Administration Oxycodone HCl 5 mg 04/15/22 13:27 04/17/22 09:36 Oxycodone Hcl (*Crx) 5 Mg Tab Ir PO 5 mg Q4H OLVIN Administration Pantoprazole Sodium 40 mg 04/15/22 09:00 04/17/22 09:30 Pantoprazole 40 Mg Tablet PO 40 mg BID OLVIN Administration Polyethylene Glycol 17 gm 04/16/22 09:00 04/17/22 09:30 Polyethylene Glycol 3350 17 Gm Powd.Pack PO 17 gm QAM OLVIN Administration Rosuvastatin Calcium 5 mg 04/15/22 09:00 04/17/22 09:30 Rosuvastatin 5 Mg Tablet PO 5 mg DAILY OLVIN Administration Senna/Docusate Sodium 2 tab 04/15/22 17:00 04/17/22 09:30 Senna/Docusate Sodium Tablet PO 2 tab BID OLVIN Administration Trazodone HCl 50 mg 04/14/22 23:40 04/16/22 21:52 Trazodone Hcl 50 Mg Tablet PO 50 mg HS OLVIN Administration Radiology Results: ITS Impressions Knee X-Ray 04/14/22 18:55 Impression: 1: Displaced transverse fracture of the patella. Chest X-Ray 04/15/22 07:29 Impression: 1: No acute cardiopulmonary disease. Intraoperative X-Ray 04/15/22 11:25 Impression: 1: Anatomic alignment of the patella status post internal reduction and fixation. Labs Labs: Laboratory Results - last 24 hr 04/17/22 04/17/22 04:59 04:59 WBC 9.1 RBC 3.36 L Hgb 9.8 L Hct 30.0 L MCV 89.3 MCH 29.2 MCHC 32.7 RDW 13.0 Plt Count 369 MPV 9.8 Immature Gran % (Auto) 0.5 Neut % (Auto) 62.0 Lymph % (Auto) 26.9 [place] % (Auto) 7.8 Eos
[2022-04-17 14:10] VITALS: BP 128/60; PULSE 68; RESP 18; TEMP 36.4; O2SAT 98
--- NOTE | 2022-04-17 15:00 | PM.IMPN ---
Progress Note: A&P Assessment and Plan (1) Displaced transverse fracture of right patella: Code(s): S82.031A - Displaced transverse fracture of right patella, initial encounter for closed fracture Status: Acute Assessment and Plan: POD 2 Post op care by ortho Non weight bearing at this time Ice packs per surgery Pain medications ordered Zofran for nausea PT/OT Non-Weight bearing status DVT per ortho Eliquis 2.5mg PO Q12H Rehab placement (2) Essential thrombocytosis: Code(s): D47.3 - Essential (hemorrhagic) thrombocythemia Status: Acute Assessment and Plan: Current PLT 369 Followed by a botany laboratory assistant at [facility] Aspirin restarted DVT prophylaxis ordered by ortho (3) Overactive bladder: Code(s): N32.81 - Overactive bladder Status: Acute Assessment and Plan: No acute issues Continue oxybutynin. (4) Hyperlipidemia: Code(s): E78.5 - Hyperlipidemia, unspecified Status: Acute Assessment and Plan: Continue rosuvastatin LFTs ok (5) Gastroesophageal reflux disease: Code(s): K21.9 - Gastro-esophageal reflux disease without esophagitis Status: Acute Assessment and Plan: Continue PPI. Time Spent With Patient Time with patient: Greater than 35 minutes Subjective Date/time seen: 04/17/22 1500 Interval history: 04/17/22 1500 Patient is doing ok today. She is really not comfortable with what she has to do with her leg. She is requesting SNF at this time. She denies any chest pain, shortness of breath, nausea, vomiting, diarrhea, constipation, weakness, and fatigue. 04/16/22 0815 Patient rest in bed. She denies any current pain. She has been tolerating food. She stated that she has been up and down all night urinating. She only complains of being tired. She denies any chest pain, shortness of breath, nausea, vomiting, diarrhea or constipation 04/15/22 1545 Patient seems to be doing well right now. Her niece is in the room. She little nervous about going home due to the fact that she lives by herself. She denies having any pain at this time. She understands her restrictions. She denies any chest pain, shortness of breath, nausea, vomiting, diarrhea, constipation, weakness or fatigue. 04/14/22? 20:40 This is a pleasant 57-year-old female with essential thrombocytosis, dyslipidemia, and GERD who presented to the ED via EMS for right knee pain and deformity after a fall. Not long prior to arrival, she was leaving work and her left leg slipped forward on the wet pavement causing her to fall hard on to her right knee. She had immediate pain in the knee and did not even try to get herself up as she knew it was fractured due to obvious deformity. Right knee x-ray showed a transverse fracture of the right patella with about 2.7 cm displacement and she is being admitted in this setting for pain control and operative repair tomorrow per Dr. Almonte. She sustained no other injuries in the fall and denies head trauma and loss of consciousness. Review of Systems Review of Systems: All systems reviewed & are unremarkable except as noted in HPI and below Exam Const: General: cooperative, healthy appearing, no acute distress, well developed, alert and awake Nutritional Appearance: well nourished Orientation/consciousness: patient oriented x3 Limitations: no limitations HENMT: Head: normal to inspection Ears: hearing grossly normal bilaterally General nose exam: Normal external nose present Mouth: Yes Normal oral and palatal mucosa present, Yes lip normal and Yes tongue normal Teeth and gingiva: abnormal tooth and associated gingiva and poor dentition Eyes: General: appearance normal, both eyes and all related structures Neck: Neck: normal visual inspection, full ROM, trachea midline and supple Chest: Chest palpation & inspection: normal inspectio
[2022-04-17 20:16] VITALS: BP 101/60; PULSE 91; RESP 16; TEMP 36.6; O2SAT 98
[2022-04-17] MEDS: traZODone HCL 50 MG TABLET PO (20:36)
[2022-04-17 21:06] VITALS: O2SAT 96
[2022-04-18] MEDS: ACETAMINOPHEN 500 MG TABLET 1000 MG PO ×4 (00:56→17:58)
[2022-04-18] MEDS: oxyCODONE HCL (*CRX) 5 MG TAB IR PO ×6 (00:56→21:08)
[2022-04-18 05:08] LABS: Basophils Absolute Auto 0.1 K/mm3 (0.0-0.1); Basophils Percent Auto 0.7 % (0.2-1.2); Eosinophils Absolute Auto 0.3 K/mm3 (0-0.3); Eosinophils Percent Auto 3.1 % (0-4.4); Hematocrit 31.1 % (37.0-47.0); Hemoglobin 10.4 g/dL (12.0-15.0); Immature Granulocyte Absolute 0.04 K/mm3 (0.00-0.031); Immature Granulocyte Percent A 0.5 % (0-0.5); Lymphocytes Absolute Auto 2.29 K/mm3 (0.9-3.2); Lymphocytes Percent Auto 26.9 % (18.3-44.2); Mean Corpuscular HGB Conc 33.4 g/dl (32-36); Mean Corpuscular Hemoglobin 29.7 pg (26-34); Mean Corpuscular Volume 88.9 fl (80-100); Mean Platelet Volume 9.2 fl (7.4-10.4); Monocytes Absolute Auto 0.7 K/mm3 (0.1-0.6); Monocytes Percent Auto 7.6 % (2.6-8.5); Neutrophils Absolute Auto 5.2 K/mm3 (1.3-6.7); Neutrophils Percent Auto 61.2 % (45.5-73.1); Platelet Count Result 401 k/mm3 (150-375); Red Cell Distribution Width 12.9 % (11.5-14.5); White Blood Count 8.5 K/mm3 (4.5-10.0)
[2022-04-18 05:43] LABS: Alanine Aminotransferase 22 U/L (6-35); Albumin Level 3.7 g/dL (3.5-5.1); Alkaline Phosphatase 68 U/L (38-126); Anion Gap 9 mmol/L (8-16); Aspartate Amino Transferase 41 U/L (14-36); Bilirubin,Total 0.4 mg/dL (0.2-1.3); Blood Urea Nitrogen 10 mg/dL (7-17); Carbon Dioxide 29 mmol/L (22-30); Chloride 99 mmol/L (98-107); Estimated CRCL calculation 75 ml/min; Estimated Glomerular Filt Rate > 60; Glucose 106 mg/dL (65-110); Magnesium 2.1 mg/dL (1.6-2.3); Potassium 3.9 mmol/L (3.4-5.0); Sodium 137 mmol/L (137-145)
[2022-04-18 05:50] VITALS: BP 107/59; PULSE 80; RESP 16; TEMP 37.2; O2SAT 96
--- NOTE | 2022-04-18 06:40 | PM.PNORT ---
Subjective Subjective Date/Time Seen: 04/18/22 06:40 Postop day 3 patient's dressing is dry. Care coordination is working on rehab facility placement. Splint is intact. Neurovascularly she is intact. Pain is controlled. Patient be discharged to rehab facility once she is accepted. Objective Data Vital Signs Vital Signs: Vital Signs - 24 hr 04/17/22 09:37 04/17/22 08:00 04/17/22 14:10 Temperature 36.4 C Pulse Rate 68 Respiratory Rate 18 Blood Pressure 128/60 Pulse Oximetry 96 98 Oxygen Delivery Room Air Room Air 04/17/22 20:16 04/17/22 21:06 04/17/22 20:30 Temperature 36.6 C Pulse Rate 91 Respiratory Rate 16 Blood Pressure 101/60 Pulse Oximetry 98 96 Oxygen Delivery Room Air Room Air 04/18/22 05:50 Temperature 37.2 C Pulse Rate 80 Respiratory Rate 16 Blood Pressure 107/59 L Pulse Oximetry 96 Oxygen Delivery Intake/Output Intake/Output: Intake & Output 04/15/22 04/16/22 04/17/22 04/18/22 23:59 23:59 23:59 23:59 Intake Total 3210 2480 1660 350 Output Total 4100 3350 2000 700 Balance -890 -870 -340 -350 Meds/Results Medications: Active Medications Generic Name Dose Route Start Last Admin Trade Name Marilyn PRN Reason Stop Dose Admin Acetaminophen 1,000 mg 04/15/22 18:00 04/18/22 05:28 Acetaminophen 500 Mg Tablet PO 1,000 mg Q6H OLVIN Administration Apixaban 2.5 mg 04/16/22 09:00 04/17/22 20:36 Apixaban 2.5 Mg Tablet PO 2.5 mg Q12HR OLVIN Administration Aspirin 81 mg 04/16/22 09:00 04/17/22 09:30 Aspirin 81 Mg Enteric Tablet PO 81 mg DAILY OLVIN Administration Azelastine HCl 1 spray 04/15/22 09:00 04/17/22 20:36 Azelastine Hcl Nasal 0.1% 137 Mcg/Spr 30 Ml Btl NASAL 1 spray Q12HR OLVIN Administration Fluticasone Propionate 1 spray 04/15/22 09:00 04/17/22 09:31 Fluticasone Propionate 0.05% Na Spr 16 Gm Btl (*Bkc) NASAL 1 spray DAILY OLVIN Administration Morphine Sulfate 2 mg 04/15/22 13:27 04/16/22 23:28 Morphine Sulfate (*Crx) 2 Mg/Ml Inj IV PUSH 2 mg Q1H PRN Administration Pain Rated 7-10 Ondansetron HCl 4 mg 04/15/22 08:36 04/15/22 12:12 Ondansetron Inj 4 Mg/2 Ml Vial IV PUSH 4 mg ONCE PRN Administration Nausea Oxybutynin Chloride 10 mg 04/15/22 09:00 04/17/22 09:30 Oxybutynin Chloride Xl 5 Mg Tab.Er.24 PO 10 mg DAILY OLVIN Administration Oxycodone HCl 5 mg 04/15/22 13:27 04/18/22 05:28 Oxycodone Hcl (*Crx) 5 Mg Tab Ir PO 5 mg Q4H OLVIN Administration Pantoprazole Sodium 40 mg 04/15/22 09:00 04/17/22 17:26 Pantoprazole 40 Mg Tablet PO 40 mg BID OLVIN Administration Polyethylene Glycol 17 gm 04/16/22 09:00 04/17/22 09:30 Polyethylene Glycol 3350 17 Gm Powd.Pack PO 17 gm QAM OLVIN Administration Rosuvastatin Calcium 5 mg 04/15/22 09:00 04/17/22 09:30 Rosuvastatin 5 Mg Tablet PO 5 mg DAILY OLVIN Administration Senna/Docusate Sodium 2 tab 04/15/22 17:00 04/17/22 17:26 Senna/Docusate Sodium Tablet PO 2 tab BID OLVIN Administration Trazodone HCl 50 mg 04/14/22 23:40 04/17/22 20:36 Trazodone Hcl 50 Mg Tablet PO 50 mg HS OLVIN Administration Radiology Results: ITS Impressions Knee X-Ray 04/14/22 18:55 Impression: 1: Displaced transverse fracture of the patella. Chest X-Ray 04/15/22 07:29 Impression: 1: No acute cardiopulmonary disease. Intraoperative X-Ray 04/15/22 11:25 Impression: 1: Anatomic alignment of the patella status post internal reduction and fixation. Labs Labs: Laboratory Results - last 24 hr 04/18/22 04/18/22 04:55 04:55 WBC 8.5 RBC 3.50 L Hgb 10.4 L Hct 31.1 L MCV 88.9 MCH 29.7 MCHC 33.4 RDW 12.9 Plt Count 401 H MPV 9.2 Immature Gran % (Auto) 0.5 Neut % (Auto) 61.2 Lymph % (Auto) 26.9 [place] % (Auto) 7.6 Eos % (Auto) 3.1 Baso % (Auto) 0.7 Lymph # (Auto) 2.29 [place] # (Auto) 0.7 H Eos # (Auto) 0.3 Baso # (Auto) 0.1
[2022-04-18] MEDS: PANTOPRAZOLE 40 MG TABLET PO ×2 (09:29→17:58)
[2022-04-18] MEDS: ROSUVASTATIN 5 MG TABLET PO (09:29)
[2022-04-18] MEDS: ASPIRIN 81 MG ENTERIC TABLET PO (09:29)
[2022-04-18] MEDS: SENNA/DOCUSATE SODIUM TABLET 2 TAB PO ×2 (09:29→17:58)
[2022-04-18] MEDS: FLUTICASONE PROPIONATE 0.05% NA SPR 16 GM BTL (*BKC) 1 SPRAY NASAL (09:30)
[2022-04-18] MEDS: polyethylene glycoL 3350 17 GM POWD.PACK PO (09:30)
[2022-04-18] MEDS: AZELASTINE HCL NASAL 0.1% 137 MCG/SPR 30 ML BTL 1 SPRAY NASAL ×2 (09:30→21:07)
[2022-04-18] MEDS: APIXABAN 2.5 MG TABLET PO ×2 (09:30→21:07)
--- NOTE | 2022-04-18 11:45 | PM.IMPN ---
Progress Note: A&P Assessment and Plan (1) Displaced transverse fracture of right patella: Code(s): S82.031A - Displaced transverse fracture of right patella, initial encounter for closed fracture Status: Acute Assessment and Plan: POD 4 Post op care by ortho Non weight bearing for 6-8 weeks Ice packs per surgery Pain medications ordered Zofran for nausea PT/OT Non-Weight bearing status DVT per ortho Eliquis 2.5mg PO Q12H Rehab placement Still awaiting an accepting facility (2) Essential thrombocytosis: Code(s): D47.3 - Essential (hemorrhagic) thrombocythemia Status: Acute Assessment and Plan: Current PLT 401 Followed by a sales representative aircraft at [place] Aspirin restarted DVT prophylaxis ordered by ortho (3) Overactive bladder: Code(s): N32.81 - Overactive bladder Status: Acute Assessment and Plan: No acute issues Continue oxybutynin. (4) Hyperlipidemia: Code(s): E78.5 - Hyperlipidemia, unspecified Status: Acute Assessment and Plan: Continue rosuvastatin LFTs ok (5) Gastroesophageal reflux disease: Code(s): K21.9 - Gastro-esophageal reflux disease without esophagitis Status: Acute Assessment and Plan: Continue PPI. Time Spent With Patient Time with patient: Greater than 35 minutes Subjective Date/time seen: 04/18/22 1130 Interval history: 04/18/22 1130 She is doing ok. She stated that her pain is better. She has been getting up to a chair. She denies any chest pain, shortness of breath, nausea, vomiting, diarrhea, constipation, weakness or fatigue, 04/17/22 1500 Patient is doing ok today. She is really not comfortable with what she has to do with her leg. She is requesting SNF at this time. She denies any chest pain, shortness of breath, nausea, vomiting, diarrhea, constipation, weakness, and fatigue. 04/16/22 0815 Patient rest in bed. She denies any current pain. She has been tolerating food. She stated that she has been up and down all night urinating. She only complains of being tired. She denies any chest pain, shortness of breath, nausea, vomiting, diarrhea or constipation 04/15/22 1545 Patient seems to be doing well right now. Her niece is in the room. She little nervous about going home due to the fact that she lives by herself. She denies having any pain at this time. She understands her restrictions. She denies any chest pain, shortness of breath, nausea, vomiting, diarrhea, constipation, weakness or fatigue. 04/14/22? 20:40 This is a pleasant 57-year-old female with essential thrombocytosis, dyslipidemia, and GERD who presented to the ED via EMS for right knee pain and deformity after a fall. Not long prior to arrival, she was leaving work and her left leg slipped forward on the wet pavement causing her to fall hard on to her right knee. She had immediate pain in the knee and did not even try to get herself up as she knew it was fractured due to obvious deformity. Right knee x-ray showed a transverse fracture of the right patella with about 2.7 cm displacement and she is being admitted in this setting for pain control and operative repair tomorrow per Dr. Almonte. She sustained no other injuries in the fall and denies head trauma and loss of consciousness. Review of Systems Review of Systems: All systems reviewed & are unremarkable except as noted in HPI and below Exam Const: General: cooperative, healthy appearing, no acute distress, well developed, alert and awake Nutritional Appearance: well nourished Orientation/consciousness: patient oriented x3 Limitations: no limitations HENMT: Head: normal to inspection Ears: hearing grossly normal bilaterally General nose exam: Normal external nose present Mouth: Yes Normal oral and palatal mucosa present, Yes lip normal and Yes tongue normal Teeth and gingiva: ab
[2022-04-18 13:36] VITALS: BP 128/69; PULSE 94; RESP 18; TEMP 37.2; O2SAT 99
[2022-04-18 19:51] VITALS: BP 120/72; PULSE 86; RESP 17; TEMP 37.2; O2SAT 97
[2022-04-18] MEDS: traZODone HCL 50 MG TABLET PO (21:07)
[2022-04-19] MEDS: oxyCODONE HCL (*CRX) 5 MG TAB IR PO ×6 (00:48→22:08)
[2022-04-19] MEDS: ACETAMINOPHEN 500 MG TABLET 1000 MG PO ×4 (00:48→17:17)
[2022-04-19 03:55] VITALS: BP 102/62; PULSE 76; RESP 18; TEMP 36.6; O2SAT 99
[2022-04-19] MEDS: AZELASTINE HCL NASAL 0.1% 137 MCG/SPR 30 ML BTL 1 SPRAY NASAL ×2 (08:32→20:38)
[2022-04-19] MEDS: SENNA/DOCUSATE SODIUM TABLET 2 TAB PO ×2 (08:33→17:17)
[2022-04-19] MEDS: PANTOPRAZOLE 40 MG TABLET PO ×2 (08:33→17:17)
[2022-04-19] MEDS: APIXABAN 2.5 MG TABLET PO ×2 (08:34→20:38)
[2022-04-19] MEDS: polyethylene glycoL 3350 17 GM POWD.PACK PO (08:34)
[2022-04-19] MEDS: FLUTICASONE PROPIONATE 0.05% NA SPR 16 GM BTL (*BKC) 1 SPRAY NASAL (08:34)
[2022-04-19] MEDS: ROSUVASTATIN 5 MG TABLET PO (08:34)
[2022-04-19] MEDS: ASPIRIN 81 MG ENTERIC TABLET PO (08:34)
--- NOTE | 2022-04-19 10:31 | P.PNIM_ITS ---
Progress Note: A&P Assessment and Plan (1) Displaced transverse fracture of right patella: Qualifiers: Encounter type: initial encounter Fracture type: closed Qualified Code(s): S82.031A - Displaced transverse fracture of right patella, initial encounter for closed fracture Code(s): S82.031A - Displaced transverse fracture of right patella, initial encounter for closed fracture Status: Acute Assessment and Plan: s/p Right patella ORIF with screw tension on 04/15/22, POD 4 * Post op care by ortho * Non weight bearing for 6-8 weeks with immobilizer * Ice packs PRN per surgery * Pain management with PRN narcotics * PT/OT * DVT per ortho Eliquis 2.5mg PO Q12H * Awaiting rehab authorization (2) Essential thrombocytosis: Code(s): D47.3 - Essential (hemorrhagic) thrombocythemia Status: Acute Assessment and Plan: chronic, stable * Followed by a mechanical process engineer at [place] * continue aspirin 81 mg daily * DVT prophylaxis ordered by ortho (3) Overactive bladder: Code(s): N32.81 - Overactive bladder Status: Acute Assessment and Plan: * No acute issues * Continue oxybutynin. (4) Hyperlipidemia: Qualifiers: Hyperlipidemia type: mixed hyperlipidemia Qualified Code(s): E78.2 - Mixed hyperlipidemia Code(s): E78.5 - Hyperlipidemia, unspecified Status: Acute Assessment and Plan: chronic, stable, Continue rosuvastatin * LFTs within normal limits (5) Gastroesophageal reflux disease: Qualifiers: Esophagitis presence: without esophagitis Qualified Code(s): K21.9 - Gastro-esophageal reflux disease without esophagitis Code(s): K21.9 - Gastro-esophageal reflux disease without esophagitis Status: Acute Assessment and Plan: chronic, stable,Continue PPI. (6) Constipation due to opioid therapy: Code(s): K59.03 - Drug induced constipation; T40.2X5A - Adverse effect of other opioids, initial encounter Status: Acute Assessment and Plan: * On miralax and senna-plus BID * magnesium citrate unavailable and patient would like to hold off on suppository or enema * Add lactulose daily * PRN bisacodyl daily if patient is willing to take. * monitor bowel function Plan code status: Full code Disposition: Awaiting SNF authorization plan of care discussed with patient, in all questions answered to the best my ability Time Spent With Patient Time with patient: 15 - 25 minutes Subjective Date/time seen: 04/19/22 10:31 no new complaints or overnight events. She reports no changes in appetite or interrupted sleep. Patient has not had a bowel movement since Sunday the day of admission. No abdominal pain, nausea, vomiting. Review of Systems Review of Systems: All systems reviewed & are unremarkable except as noted in HPI and below Exam Narrative: General: Well-developed female Sitting up in the chair. No acute distress. Nontoxic appearing HEENT: Normocephalic. PERRL. Sclera anicteric. Oral mucosa moist. Grossly normal hearing. Neck: Supple. Respiratory: Lungs are clear to auscultation bilaterally. RR regular and unlabored. Cardiovascular: Regular rate and rhythm with S1-S2. No murmurs, gallops, or rubs. Gastrointestinal: Abdomen is s
--- NOTE | 2022-04-19 10:31 | PM.IMPN ---
Progress Note: A&P Assessment and Plan (1) Displaced transverse fracture of right patella: Qualifiers: Encounter type: initial encounter Fracture type: closed Qualified Code(s): S82.031A - Displaced transverse fracture of right patella, initial encounter for closed fracture Code(s): S82.031A - Displaced transverse fracture of right patella, initial encounter for closed fracture Status: Acute Assessment and Plan: s/p Right patella ORIF with screw tension on 04/15/22, POD 4 Post op care by ortho Non weight bearing for 6-8 weeks with immobilizer Ice packs PRN per surgery Pain management with PRN narcotics PT/OT DVT per ortho Eliquis 2.5mg PO Q12H Awaiting rehab authorization (2) Essential thrombocytosis: Code(s): D47.3 - Essential (hemorrhagic) thrombocythemia Status: Acute Assessment and Plan: chronic, stable Followed by a artificial flower maker at [place] continue aspirin 81 mg daily DVT prophylaxis ordered by ortho (3) Overactive bladder: Code(s): N32.81 - Overactive bladder Status: Acute Assessment and Plan: No acute issues Continue oxybutynin. (4) Hyperlipidemia: Qualifiers: Hyperlipidemia type: mixed hyperlipidemia Qualified Code(s): E78.2 - Mixed hyperlipidemia Code(s): E78.5 - Hyperlipidemia, unspecified Status: Acute Assessment and Plan: chronic, stable, Continue rosuvastatin LFTs within normal limits (5) Gastroesophageal reflux disease: Qualifiers: Esophagitis presence: without esophagitis Qualified Code(s): K21.9 - Gastro-esophageal reflux disease without esophagitis Code(s): K21.9 - Gastro-esophageal reflux disease without esophagitis Status: Acute Assessment and Plan: chronic, stable,Continue PPI. (6) Constipation due to opioid therapy: Code(s): K59.03 - Drug induced constipation; T40.2X5A - Adverse effect of other opioids, initial encounter Status: Acute Assessment and Plan: On miralax and senna-plus BID magnesium citrate unavailable and patient would like to hold off on suppository or enema Add lactulose daily PRN bisacodyl daily if patient is willing to take. monitor bowel function Plan code status: Full code Disposition: Awaiting SNF authorization plan of care discussed with patient, in all questions answered to the best my ability Time Spent With Patient Time with patient: 15 - 25 minutes Subjective Date/time seen: 04/19/22 10:31 no new complaints or overnight events. She reports no changes in appetite or interrupted sleep. Patient has not had a bowel movement since Sunday the day of admission. No abdominal pain, nausea, vomiting. Review of Systems Review of Systems: All systems reviewed & are unremarkable except as noted in HPI and below Exam Narrative: General: Well-developed female Sitting up in the chair. No acute distress. Nontoxic appearing HEENT: Normocephalic. PERRL. Sclera anicteric. Oral mucosa moist. Grossly normal hearing. Neck: Supple. Respiratory: Lungs are clear to auscultation bilaterally. RR regular and unlabored. Cardiovascular: Regular rate and rhythm with S1-S2. No murmurs, gallops, or rubs. Gastrointestinal: Abdomen is soft, nontender, and nondistended with hypoactive bowel sounds. No guarding. Skin: Warm and dry. No rash or lesions on limited exam. Musculoskeletal: Right knee was in an immobilizer and that was not removed for exam. +moderate edema and ecchymosis. Sensation and movement intact. Pedal pulses +2 and equal bilaterally. Extremities: No cyanosis, clubbing, or edema. Radial and pedal pulses intact. Neurological: Alert and oriented x4. Cranial nerves 2-12 are grossly intact. No focal deficits. Psychiatric: Pleasant and cooperative with normal mood and affect. Objective Data Vital Signs Vital Si
[2022-04-19] MEDS: LACTULOSE 20 GM/30 ML UDC PO (12:53)
[2022-04-19 14:00] VITALS: BP 117/64; PULSE 86; RESP 18; TEMP 37.2; O2SAT 100
[2022-04-19 20:39] VITALS: BP 134/84; PULSE 94; RESP 16; TEMP 36.6; O2SAT 96
[2022-04-19] MEDS: traZODone HCL 50 MG TABLET PO (20:39)
[2022-04-20] MEDS: oxyCODONE HCL (*CRX) 5 MG TAB IR PO ×6 (00:31→20:39)
[2022-04-20] MEDS: ACETAMINOPHEN 500 MG TABLET 1000 MG PO ×4 (00:33→17:28)
[2022-04-20 05:50] VITALS: BP 121/67; PULSE 79; RESP 16; TEMP 36.7; O2SAT 97
[2022-04-20 07:34] LABS: Hematocrit 35.6 % (37.0-47.0); Hemoglobin 11.5 g/dL (12.0-15.0); Mean Corpuscular HGB Conc 32.3 g/dl (32-36); Mean Corpuscular Hemoglobin 28.8 pg (26-34); Mean Platelet Volume 9.3 fl (7.4-10.4); Platelet Count Result 538 k/mm3 (150-375); Red Cell Distribution Width 12.8 % (11.5-14.5); White Blood Count 9.5 K/mm3 (4.5-10.0)
--- NOTE | 2022-04-20 08:43 | PM.PNORT ---
Subjective Subjective Date/Time Seen: 04/20/22 08:43 postop day 4 patient is alert. Pain is doing much better at this point. Swelling has improved in the knee. She has been transferring well to the chair. Brace is on and and is in the correct position. Dressing is dry. At this point we are waiting on care coordination to get patient accepted to rehab facility. Will continue to follow while she is here. Objective Data Vital Signs Vital Signs: Vital Signs - 24 hr 04/19/22 14:00 04/19/22 20:39 04/19/22 22:19 Temperature 37.2 C 36.6 C Pulse Rate 86 94 Respiratory Rate 18 16 Blood Pressure 117/64 134/84 Pulse Oximetry 100 96 Oxygen Delivery Room Air 04/20/22 05:50 Temperature 36.7 C Pulse Rate 79 Respiratory Rate 16 Blood Pressure 121/67 Pulse Oximetry 97 Oxygen Delivery Intake/Output Intake/Output: Intake & Output 04/17/22 04/18/22 04/19/22 04/20/22 23:59 23:59 23:59 23:59 Intake Total 1659 2009 2269 250 Output Total 1999 3100 2950 800 Balance -340 -1090 -680 -550 Meds/Results Medications: Active Medications Generic Name Dose Route Start Last Admin Trade Name Freq PRN Reason Stop Dose Admin Acetaminophen 1,000 mg 04/15/22 18:00 04/20/22 05:02 Acetaminophen 500 Mg Tablet PO 1,000 mg Q6H OLVIN Administration Apixaban 2.5 mg 04/16/22 09:00 04/19/22 20:38 Apixaban 2.5 Mg Tablet PO 2.5 mg Q12HR OLVIN Administration Aspirin 81 mg 04/16/22 09:00 04/19/22 08:34 Aspirin 81 Mg Enteric Tablet PO 81 mg DAILY OLVIN Administration Azelastine HCl 1 spray 04/15/22 09:00 04/19/22 20:38 Azelastine Hcl Nasal 0.1% 137 Mcg/Spr 30 Ml Btl NASAL 1 spray Q12HR OLVIN Administration Bisacodyl 10 mg 04/19/22 10:30 Bisacodyl 10 Mg Suppository RECTAL QAM PRN Constipation Fluticasone Propionate 1 spray 04/15/22 09:00 04/19/22 08:34 Fluticasone Propionate 0.05% Na Spr 16 Gm Btl (*Bkc) NASAL 1 spray DAILY OLVIN Administration Lactulose 20 gm 04/19/22 10:40 04/19/22 12:53 Lactulose 20 Gm/30 Ml Udc PO 20 gm QAM OLVIN Administration Loratadine 10 mg 04/19/22 10:29 Loratadine 10 Mg Tablet PO QAM PRN Allergic Symptoms Morphine Sulfate 2 mg 04/15/22 13:27 04/16/22 23:28 Morphine Sulfate (*Crx) 2 Mg/Ml Inj IV PUSH 2 mg Q1H PRN Administration Pain Rated 7-10 Ondansetron HCl 4 mg 04/15/22 08:36 04/15/22 12:12 Ondansetron Inj 4 Mg/2 Ml Vial IV PUSH 4 mg ONCE PRN Administration Nausea Oxybutynin Chloride 10 mg 04/15/22 09:00 04/19/22 09:30 Oxybutynin Chloride Xl 5 Mg Tab.Er.24 PO 10 mg DAILY OLVIN Administration Oxycodone HCl 5 mg 04/15/22 13:27 04/20/22 05:02 Oxycodone Hcl (*Crx) 5 Mg Tab Ir PO 5 mg Q4H OLVIN Administration Pantoprazole Sodium 40 mg 04/15/22 09:00 04/19/22 17:17 Pantoprazole 40 Mg Tablet PO 40 mg BID OLVIN Administration Polyethylene Glycol 17 gm 04/16/22 09:00 04/19/22 08:34 Polyethylene Glycol 3350 17 Gm Powd.Pack PO 17 gm QAM OLVIN Administration Rosuvastatin Calcium 5 mg 04/15/22 09:00 04/19/22 08:34 Rosuvastatin 5 Mg Tablet PO 5 mg DAILY OLVIN Administration Senna/Docusate Sodium 2 tab 04/15/22 17:00 04/19/22 17:17 Senna/Docusate Sodium Tablet PO 2 tab BID OLVIN Administration Trazodone HCl 50 mg 04/14/22 23:40 04/19/22 20:39 Trazodone Hcl 50 Mg Tablet PO 50 mg HS OLVIN Administration Radiology Results: ITS Impressions Knee X-Ray 04/14/22 18:55 Impression: 1: Displaced transverse fracture of the patella. Chest X-Ray 04/15/22 07:29 Impression: 1: No acute cardiopulmonary disease. Intraoperative X-Ray 04/15/22 11:25 Impression: 1: Anatomic alignment of the patella status post internal reduction and fixation. Labs Labs: Laboratory Results - last 24 hr 04/20/22 07:28 WBC 9.5 RBC 4.00 L Hgb 11.5 L Hct 35.6 L MCV 89.0 MCH 28.8 MCHC 32.3 RDW 12.8 Plt Co
[2022-04-20] MEDS: AZELASTINE HCL NASAL 0.1% 137 MCG/SPR 30 ML BTL 1 SPRAY NASAL ×2 (08:45→20:38)
[2022-04-20] MEDS: SENNA/DOCUSATE SODIUM TABLET 2 TAB PO ×2 (08:45→17:28)
[2022-04-20] MEDS: APIXABAN 2.5 MG TABLET PO ×2 (08:45→20:38)
[2022-04-20] MEDS: ROSUVASTATIN 5 MG TABLET PO (08:45)
[2022-04-20] MEDS: ASPIRIN 81 MG ENTERIC TABLET PO (08:45)
[2022-04-20] MEDS: PANTOPRAZOLE 40 MG TABLET PO ×2 (08:45→17:28)
[2022-04-20] MEDS: LORATADINE 10 MG TABLET PO (08:45)
[2022-04-20] MEDS: polyethylene glycoL 3350 17 GM POWD.PACK PO (08:46)
[2022-04-20] MEDS: FLUTICASONE PROPIONATE 0.05% NA SPR 16 GM BTL (*BKC) 1 SPRAY NASAL (08:46)
[2022-04-20 14:00] VITALS: BP 126/70; PULSE 98; RESP 16; TEMP 37.4; O2SAT 98
--- NOTE | 2022-04-20 16:17 | P.PNIM_ITS ---
Progress Note: A&P Assessment and Plan (1) Displaced transverse fracture of right patella: Qualifiers: Encounter type: initial encounter Fracture type: closed Qualified Code(s): S82.031A - Displaced transverse fracture of right patella, initial encounter for closed fracture Code(s): S82.031A - Displaced transverse fracture of right patella, initial encounter for closed fracture Status: Acute Assessment and Plan: s/p Right patella ORIF with screw tension on 04/15/22, POD 4 * Post op care by ortho * Non weight bearing for 6-8 weeks with immobilizer * Ice packs PRN per surgery * Pain management with PRN narcotics * PT/OT * DVT per ortho Eliquis 2.5mg PO Q12H * Awaiting rehab authorization (2) Essential thrombocytosis: Code(s): D47.3 - Essential (hemorrhagic) thrombocythemia Status: Acute Assessment and Plan: chronic, stable * Followed by a tail puller at [place] * continue aspirin 81 mg daily * DVT prophylaxis ordered by ortho (3) Overactive bladder: Code(s): N32.81 - Overactive bladder Status: Acute Assessment and Plan: * No acute issues * Continue oxybutynin. (4) Hyperlipidemia: Qualifiers: Hyperlipidemia type: mixed hyperlipidemia Qualified Code(s): E78.2 - Mixed hyperlipidemia Code(s): E78.5 - Hyperlipidemia, unspecified Status: Acute Assessment and Plan: chronic, stable, Continue rosuvastatin * LFTs within normal limits (5) Gastroesophageal reflux disease: Qualifiers: Esophagitis presence: without esophagitis Qualified Code(s): K21.9 - Gastro-esophageal reflux disease without esophagitis Code(s): K21.9 - Gastro-esophageal reflux disease without esophagitis Status: Acute Assessment and Plan: chronic, stable,Continue PPI. (6) Constipation due to opioid therapy: Code(s): K59.03 - Drug induced constipation; T40.2X5A - Adverse effect of other opioids, initial encounter Status: Acute Assessment and Plan: * On miralax and senna-plus BID * magnesium citrate unavailable and patient would like to hold off on suppository or enema * Add lactulose daily * PRN bisacodyl daily if patient is willing to take. * monitor bowel function * 04/20/22 Patient had BM yesterday evening. Plan code status: Full code Disposition: Awaiting SNF authorization Patient is doing well ans stable for discharge when SNF authorization is obtained. Time Spent With Patient Time with patient: 15 - 25 minutes Subjective Date/time seen: 04/20/22 16:17 No new complaints or overnight events. She had a BM yesterday and feels better. No dyspnea, abd pain, nausea, vomiting or diarrhea. Her right knee pain is tolerable with oral medications. She is still awaiting SNF authorization. Review of Systems Review of Systems: All systems reviewed & are unremarkable except as noted in HPI and below Exam Narrative: General: No acute distress. Nontoxic appearing HEENT: Normocephalic. pupils equal and round. Sclera anicteric. Oral mucosa moist. Grossly normal hearing. Neck: Supple. Respiratory: Lungs are clear to auscultation bilaterally. RR regular and unlabored. Cardiovascular: Regular rate and rhythm with S1-S2. No murmurs, gallops, or rubs.
--- NOTE | 2022-04-20 16:17 | PM.IMPN ---
Progress Note: A&P Assessment and Plan (1) Displaced transverse fracture of right patella: Qualifiers: Encounter type: initial encounter Fracture type: closed Qualified Code(s): S82.031A - Displaced transverse fracture of right patella, initial encounter for closed fracture Code(s): S82.031A - Displaced transverse fracture of right patella, initial encounter for closed fracture Status: Acute Assessment and Plan: s/p Right patella ORIF with screw tension on 04/15/22, POD 4 Post op care by ortho Non weight bearing for 6-8 weeks with immobilizer Ice packs PRN per surgery Pain management with PRN narcotics PT/OT DVT per ortho Eliquis 2.5mg PO Q12H Awaiting rehab authorization (2) Essential thrombocytosis: Code(s): D47.3 - Essential (hemorrhagic) thrombocythemia Status: Acute Assessment and Plan: chronic, stable Followed by a recycling assistant at [place] continue aspirin 81 mg daily DVT prophylaxis ordered by ortho (3) Overactive bladder: Code(s): N32.81 - Overactive bladder Status: Acute Assessment and Plan: No acute issues Continue oxybutynin. (4) Hyperlipidemia: Qualifiers: Hyperlipidemia type: mixed hyperlipidemia Qualified Code(s): E78.2 - Mixed hyperlipidemia Code(s): E78.5 - Hyperlipidemia, unspecified Status: Acute Assessment and Plan: chronic, stable, Continue rosuvastatin LFTs within normal limits (5) Gastroesophageal reflux disease: Qualifiers: Esophagitis presence: without esophagitis Qualified Code(s): K21.9 - Gastro-esophageal reflux disease without esophagitis Code(s): K21.9 - Gastro-esophageal reflux disease without esophagitis Status: Acute Assessment and Plan: chronic, stable,Continue PPI. (6) Constipation due to opioid therapy: Code(s): K59.03 - Drug induced constipation; T40.2X5A - Adverse effect of other opioids, initial encounter Status: Acute Assessment and Plan: On miralax and senna-plus BID magnesium citrate unavailable and patient would like to hold off on suppository or enema Add lactulose daily PRN bisacodyl daily if patient is willing to take. monitor bowel function 04/20/22 Patient had BM yesterday evening. Plan code status: Full code Disposition: Awaiting SNF authorization Patient is doing well ans stable for discharge when SNF authorization is obtained. Time Spent With Patient Time with patient: 15 - 25 minutes Subjective Date/time seen: 04/20/22 16:17 No new complaints or overnight events. She had a BM yesterday and feels better. No dyspnea, abd pain, nausea, vomiting or diarrhea. Her right knee pain is tolerable with oral medications. She is still awaiting [facility] authorization. Review of Systems Review of Systems: All systems reviewed & are unremarkable except as noted in HPI and below Exam Narrative: General: No acute distress. Nontoxic appearing HEENT: Normocephalic. pupils equal and round. Sclera anicteric. Oral mucosa moist. Grossly normal hearing. Neck: Supple. Respiratory: Lungs are clear to auscultation bilaterally. RR regular and unlabored. Cardiovascular: Regular rate and rhythm with S1-S2. No murmurs, gallops, or rubs. Gastrointestinal: Abdomen is soft, nontender, and nondistended with hypoactive bowel sounds. No guarding. Skin: Warm and dry. No rash or lesions on limited exam. Extremities: Right knee in immobilizer +moderate edema and ecchymosis. Sensation and movement intact. No cyanosis, clubbing, or edema. Radial and pedal pulses intact. Neurological: Alert and oriented x4. No focal deficits. Psychiatric: Pleasant and cooperative with normal mood and affect. Objective Data Vital Signs Vital Signs: Vital Signs - 24 hr 04/19/22 20:39 04/19/22 22:19 04/20/22 05:50 Temperature 98 F 98.1 F Puls
[2022-04-20 20:31] VITALS: BP 118/77; PULSE 93; RESP 18; TEMP 36.3; O2SAT 100
[2022-04-20] MEDS: traZODone HCL 50 MG TABLET PO (20:39)
[2022-04-21] MEDS: oxyCODONE HCL (*CRX) 5 MG TAB IR PO ×5 (00:28→16:59)
[2022-04-21] MEDS: ACETAMINOPHEN 500 MG TABLET 1000 MG PO ×4 (00:28→16:59)
[2022-04-21 04:35] VITALS: BP 117/62; PULSE 77; RESP 18; TEMP 36.3; O2SAT 95
[2022-04-21] MEDS: FLUTICASONE PROPIONATE 0.05% NA SPR 16 GM BTL (*BKC) 1 SPRAY NASAL (08:05)
[2022-04-21] MEDS: polyethylene glycoL 3350 17 GM POWD.PACK PO (08:05)
[2022-04-21] MEDS: APIXABAN 2.5 MG TABLET PO (08:06)
[2022-04-21] MEDS: SENNA/DOCUSATE SODIUM TABLET 2 TAB PO ×2 (08:06→16:59)
[2022-04-21] MEDS: PANTOPRAZOLE 40 MG TABLET PO ×2 (08:06→16:59)
[2022-04-21] MEDS: AZELASTINE HCL NASAL 0.1% 137 MCG/SPR 30 ML BTL 1 SPRAY NASAL (08:07)
[2022-04-21] MEDS: ROSUVASTATIN 5 MG TABLET PO (08:07)
[2022-04-21] MEDS: ASPIRIN 81 MG ENTERIC TABLET PO (08:07)
--- NOTE | 2022-04-21 09:18 | PCNWS ---
Weekly nutritional screen. Patient is tolerating current diet with adequate intake. No weight loss reported. No nutritional needs at this time.
[2022-04-21] MEDS: CALCIUM CARBONATE (TUMS) 500 MG (200 MG ELEMENTAL) PO (13:20)
[2022-04-21 14:00] VITALS: BP 127/79; PULSE 92; RESP 18; TEMP 36.8; O2SAT 96
--- NOTE | 2022-04-21 15:00 | PM.DS ---
DS: Admitting Diagnosis Discharge Date 04/21/2022 1627 Admitting Diagnosis Displaced transverse fracture of right patella DS: Discharge Diagnosis Discharge Diagnosis (1) Displaced transverse fracture of right patella: Qualifiers: Encounter type: initial encounter Fracture type: closed Qualified Code(s): S82.031A - Displaced transverse fracture of right patella, initial encounter for closed fracture Code(s): S82.031A - Displaced transverse fracture of right patella, initial encounter for closed fracture Status: Acute Assessment and Plan: s/p Right patella ORIF with screw tension on 04/15/22 Post op care by ortho Non weight bearing for 6-8 weeks with immobilizer Ice packs PRN per surgery Pain management with oral narcotics PT/OT DVT per ortho Eliquis 2.5mg PO Q12H (2) Essential thrombocytosis: Code(s): D47.3 - Essential (hemorrhagic) thrombocythemia Status: Acute Assessment and Plan: chronic, stable Followed by a janitor and cleaner at [place] continue aspirin 81 mg daily DVT prophylaxis ordered by ortho (3) Overactive bladder: Code(s): N32.81 - Overactive bladder Status: Acute Assessment and Plan: No acute issues Continue oxybutynin. (4) Hyperlipidemia: Qualifiers: Hyperlipidemia type: mixed hyperlipidemia Qualified Code(s): E78.2 - Mixed hyperlipidemia Code(s): E78.5 - Hyperlipidemia, unspecified Status: Acute Assessment and Plan: chronic, stable, Continue rosuvastatin LFTs within normal limits (5) Gastroesophageal reflux disease: Qualifiers: Esophagitis presence: without esophagitis Qualified Code(s): K21.9 - Gastro-esophageal reflux disease without esophagitis Code(s): K21.9 - Gastro-esophageal reflux disease without esophagitis Status: Acute Assessment and Plan: chronic, stable,Continue PPI. (6) Constipation due to opioid therapy: Code(s): K59.03 - Drug induced constipation; T40.2X5A - Adverse effect of other opioids, initial encounter Status: Acute Assessment and Plan: On miralax and senna-plus BID magnesium citrate unavailable and patient would like to hold off on suppository or enema Add lactulose daily PRN bisacodyl daily if patient is willing to take. monitor bowel function 04/20/22 Patient had BM yesterday evening. DS: Summary Hospital Course Reason for hospitalization: Right knee pain and deformity from fall Hospital Course: Kaya Stu is a 57-year-old female with essential thrombocytosis, dyslipidemia, and GERD who presented to the ED via EMS for right knee pain and deformity following a fall. She reported leaving work and her left leg slipped forward on the wet pavement causing her to fall hard on to her right knee. She had immediate pain in the knee and did not even try to get herself up as she knew it was fractured due to obvious deformity. Right knee x-ray showed a transverse fracture of the right patella with about 2.7 cm displacement. She denied head injury or loss of consciousness. She was admitted to the medical floor and Orthopedic surgery was consulted. She underwent right patella ORIF with cannulated screw tension band technique on 04/15/[address] Almonte. EBL was 25 mL. She received IV Ancef x3 and IV Vancomycin postop. She was placed in a knee immobilizer and is [id number] for 6-8 weeks. Eliquis 2.5 mg PO BID was started postoperatively for DVT prophylaxis. She had difficulty mobilizing postoperatively with PT. The patient lives alone and SNF rehab was recommended for patient safety as she was thought to be unable to care for herself. Pain was controlled with Oxycodone 5 mg po q4 hours scheduled. She had difficulty with constipation and was treated with daily miralax and senna-plus BID. Lactulose 20 gm po x1 was given with good effect. She had a BM
[2022-04-21 16:15] LABS: EDCOVIDSCREEN Negative (Negative)
== END 2022-04-21 17:51 | DRG 517 ==
LOC: ANHED 19:47 → ANH2MED 20:31
PROVIDERS: Nurse Practitioner; Orthopaedic Surgery; Physician Assistant; Admitting Provider Internal Medicine; Emergency Provider Emergency Medicine; PCP Family Medicine; Visit Provider Nurse Practitioner Family
PROC: 0QSD04Z Reposition Right Patella with Internal Fixation Device, Open Approach (ICD-10-PCS; CPT 27524; principal; 2022-04-15 08:30)
DX: S82.031A Displaced transverse fracture of right patella, initial encounter for closed fracture (principal); W01.0XXA Fall on same level from slipping, tripping and stumbling without subsequent striking against object, initial encounter; D47.3 Essential (hemorrhagic) thrombocythemia; N32.81 Overactive bladder; E78.2 Mixed hyperlipidemia; K21.9 Gastro-esophageal reflux disease without esophagitis; K59.03 Drug induced constipation; T40.2X5A Adverse effect of other opioids, initial encounter; Z20.822 Contact with and (suspected) exposure to COVID-19; Z79.82 Long term (current) use of aspirin; Z88.2 Allergy status to sulfonamides
CPT/HCPCS: 36415; 71045; 73564; 80048; 80053; 82306; 83735; 85025; 85027; 85610; 85730; 87426; 93005; 96374; 96375; 97110; 97116; 97162; 97165; 97530; 97535; 99199; 99285; A9270; C1713; C1769; C9803; G0378; J0690; J1100; J1170; J1200; J1741; J2250; J2270; J2370; J2405; J2704; J3010; J3370; J7030; J7120; L1830

== ENCOUNTER 2022-05-18 13:22 | Outpatient (NON) | payer BC, SELFPAY ==
[2022-05-18 14:19] LABS: Add Urine Microscopic? YES; Appearance Urine Clear (Clear); Bilirubin Urine Negative (Negative); Blood Urine 1+ (Negative); Color Urine Colorless (Yellow); Glucose Urine UA Negative (Negative); Ketones Urine Negative (Negative); Leukocyte Esterase Ur Negative LEU/UL (Negative); Nitrate Urine Negative (Negative); Protein Urine Negative (Negative); RBC Urine 0-2 /hpf (0-2); Urobilinogen Urine Negative mg/dL (<2.0); WBC Urine 0-3 /hpf
[2022-05-18 14:25] LABS: Specific Grav Ur 1.002 (1.001-1.035)
== END 2022-05-18 13:23 | disposition home or self-care (01) ==
PROVIDERS: PCP Family Medicine; Visit Provider Physician Assistant
DX: R30.0 Dysuria (principal); N39.0 Urinary tract infection, site not specified
CPT/HCPCS: 81001

== ENCOUNTER 2022-05-22 10:07 | Outpatient (NON) | payer BC, SELFPAY ==
[2022-05-22 11:50] LABS: Add Urine Microscopic? NO; Appearance Urine Clear (Clear); Bilirubin Urine Negative (Negative); Blood Urine Negative (Negative); Color Urine Yellow (Yellow); Glucose Urine UA Negative (Negative); Ketones Urine Negative (Negative); Leukocyte Esterase Ur Negative LEU/UL (Negative); Nitrate Urine Negative (Negative); Protein Urine Negative (Negative); Specific Grav Ur 1.015 (1.001-1.035); Urobilinogen Urine 0.2 mg/dL (<2.0); pH Urine 7.5 (5.0-9.0)
[2022-05-22 16:54] LABS: Basophils Absolute Auto 0.1 K/mm3 (0.0-0.1); Basophils Percent Auto 1.2 % (0.2-1.2); Eosinophils Absolute Auto 0.3 K/mm3 (0-0.3); Eosinophils Percent Auto 2.9 % (0-4.4); Hematocrit 42.6 % (37.0-47.0); Hemoglobin 14.1 g/dL (12.0-15.0); Immature Granulocyte Absolute 0.03 K/mm3 (0.00-0.031); Immature Granulocyte Percent A 0.3 % (0-0.5); Lymphocytes Absolute Auto 2.67 K/mm3 (0.9-3.2); Lymphocytes Percent Auto 24.5 % (18.3-44.2); Mean Corpuscular HGB Conc 33.1 g/dl (32-36); Mean Corpuscular Hemoglobin 29.3 pg (26-34); Mean Corpuscular Volume 88.4 fl (80-100); Mean Platelet Volume 9.9 fl (7.4-10.4); Monocytes Absolute Auto 0.7 K/mm3 (0.1-0.6); Monocytes Percent Auto 6.1 % (2.6-8.5); Neutrophils Absolute Auto 7.1 K/mm3 (1.3-6.7); Platelet Count Result 626 k/mm3 (150-375); Red Blood Count 4.82 M/mm3 (4.2-5.4); Red Cell Distribution Width 13.1 % (11.5-14.5); White Blood Count 10.9 K/mm3 (4.5-10.0)
[2022-05-22 16:59] LABS: Alanine Aminotransferase 16 U/L (6-35); Albumin Level 4.8 g/dL (3.5-5.1); Alkaline Phosphatase 64 U/L (38-126); Anion Gap 14 mmol/L (8-16); Aspartate Amino Transferase 24 U/L (14-36); Bilirubin,Total 0.3 mg/dL (0.2-1.3); Blood Urea Nitrogen 10 mg/dL (7-17); Calcium 9.2 mg/dL (8.4-10.2); Carbon Dioxide 26 mmol/L (22-30); Chloride 100 mmol/L (98-107); Estimated Glomerular Filt Rate > 60; Glucose 118 mg/dL (65-110); Potassium 4.1 mmol/L (3.4-5.0); Sodium 140 mmol/L (137-145)
== END 2022-05-22 10:08 | disposition home or self-care (01) ==
LOC: ANHLAB 10:09 → HOME HLTH 10:10
PROVIDERS: PCP Family Medicine; Visit Provider Physician Assistant
DX: R30.0 Dysuria (principal); N39.0 Urinary tract infection, site not specified; R52 Pain, unspecified
CPT/HCPCS: 80053; 81003; 85025

== ENCOUNTER → 2022-11-24 08:08 | Outpatient (CLI) | payer BC, SELFPAY ==
--- NOTE | ~2022-11-24 | MMUS_ITS ---
EXAMINATION: MM diagnostic vanessa BI w tiny, US breast LT limited HISTORY: Left breast pain TECHNIQUE: Craniocaudal, mediolateral, and mediolateral oblique 3-D tomosynthesis images of the breas ts were performed and synthetic 2-D images were generated. CAD analysis was submitted and interpreted . High resolution limited left breast ultrasound was performed. COMPARISON: No prior mammogram is currently available for comparison at this institution. BREAST PARENCHYMAL COMPOSITION: There are scattered areas of fibroglandular density. FINDINGS: MAMMOGRAPHIC FINDINGS: No suspicious mass, calcification, or architectural distortion are identified in either breast to sug gest malignancy. No mammographic correlate is identified for the patient's reported left breast pain. ULTRASOUND: There is no evidence of focal abnormal solid or cystic mass in the vicinity of the patient's left my ast pain. IMPRESSION: 1. No specific mammographic or sonographic correlate is identified for the patient's left breast pain . Further evaluation at this time should be based on clinical assessment. Continued follow-up physica l examination is recommended. 2. Recommend routine screening mammography in one year. BI-RADS Category 1: Negative Reviewed, dictated and finalized at location A. IMPRESSION: 1. No specific mammographic or sonographic correlate is identified for the jacquelyn ent's left breast pain. Further evaluation at this time should be based on clin ical assessment. Continued follow-up physical examination is recommended. 2. Recommend routine screening mammography in one year. BI-RADS Category 1: Negative
== END ==
PROVIDERS: PCP Family Medicine; Visit Provider Physician Assistant
DX: N64.4 Mastodynia (principal)
CPT/HCPCS: 76642; 77062; 77066; G0279

== ENCOUNTER → 2023-01-15 10:18 | Outpatient (CLI) | payer BC, SELFPAY ==
--- NOTE | ~2023-01-15 | DEXA_ITS ---
Bone Density Report Name: ESDRAS TOWNSEND Age: 58 Sex: Female Ethnicity: White Date of : 1965 Indication: postmenopausal; screening for osteoporosis; prior fracture; hysterectomy; Referring Provider: HÉCTOR MARTINEZ Study: Bone densitometry was performed. Exam Date: January 15, 2023 Accession number: [id number] Bone Density: Region BMD T-score Z-score Classification AP Spine (L1-L4) 0.849 -1.8 -0.4 Osteopenia Femoral Neck (Left) 0.620 -2.1 -0.8 Osteopenia Total Hip (Left) 0.776 -1.4 -0.4 Osteopenia Femoral Neck (Right) 0.614 -2.1 -0.8 Osteopenia Total Hip (Right) 0.762 -1.5 -0.5 Osteopenia Total Hip Mean 0.769 -1.5 -0.5 Osteopenia World Health Organization criteria for BMD impression classify patients as: Normal (T-score at or above -1.0), Osteopenia (T-score between -1.0 and -2.5), or Osteoporosis (T-score at or below -2.5). 10-year Fracture Risk(1): Major Osteoporotic Fracture 16% Hip Fracture 2.3% Reported Risk Factors: [place] (), Neck BMD=0.614, BMI=23.6, previous fracture (1) FRAX(R) Version 3.08. Fracture probability calculated for an untreated patient. Fracture probability may be lower if the patient has received treatment. Clinical Information Provided by Patient: Has had a low trauma fracture Has the following medical conditions: Hysterectomy Patient maximum height was 68 Menopause Age: 53 Drinks caffeinated beverages Onset of menses at age 10 Number of children 0 Impression: The patient has low bone mass, based on the Left Femoral Neck T-score. The patient has an estimated ten-year risk of hip fracture of 2.3% and an estimated ten-year risk of major fracture of 16%, based on the WHO FRAX algorithm. The patient has risk factors, including: previous fracture. Discussion: BONE DENSITY IS LOW AT ONE OR MORE SKELETAL SITES. This patient's lowest T-score is low at one or more skeletal sites. It meets the World Health Organization's (WHO) criteria for ?low bone mass? (T-score between -1.0 and -2.5). The patient's 10-year risk of fracture as calculated by FRAX is less than the threshold where pharmacological therapy is recommended by the National Osteoporosis Foundation (NOF). However, all treatment decisions require clinical judgment and consideration of individual patient factors, including patient preferences, comorbidities, previous drug use, risk factors not captured in the FRAX model (e.g., frailty, falls, vitamin D deficiency, increased bone turnover, interval significant decline in bone density) and possible under or overestimation of fracture risk by FRAX. The patient should follow a healthful lifestyle (good nutrition with adequate calcium and vitamin D, and appropriate weight-bearing exercise). Follow-Up: Consider repeating this study in 2 to 3 years to reassess this
== END ==
PROVIDERS: PCP Family Medicine; Visit Provider Physician Assistant
DX: Z78.0 Asymptomatic menopausal state (principal); M85.89 Other specified disorders of bone density and structure, multiple sites
CPT/HCPCS: 77080

== ENCOUNTER → 2023-06-04 10:36 | Outpatient (CLI) | payer OTHER, SELFPAY ==
--- NOTE | ~2023-06-04 | MR_ITS ---
MRI of the right knee Clinical history: Pain Technique: Coronal proton density and proton density-weighted images, sagittal proton-density and T2 fat-sat images, and axial proton-density fat-saturated images were acquired. Findings: Anterior and posterior cruciate ligaments are intact. Medial collateral ligament and the la teral collateral ligament complex are intact. Popliteus tendon is intact. Medial and lateral menisci are intact, without evidence of tear. Articular cartilage is well preserved in the medial lateral compartments. Patellofemoral compartment articular cartilage is also probably intact. There is orthopedic hardware at the patella and distal q uadriceps/proximal patellar tendons, with associated susceptibility artifact. No gross quadriceps ten don or patellar tendon tear seen. No significant joint effusion or Marks's cyst evident. Impression: Evidence of prior patellar and/or extensor mechanism surgery. Correlate with surgical history. No other significant findings. Reviewed, dictated and finalized at [facility]. RPRISE ENGINEER Impression: Evidence of prior patellar and/or extensor mechanism surgery. Correlate with rogers rgical history. No other significant findings.
== END ==
PROVIDERS: PCP Family Medicine; Visit Provider Orthopaedic Surgery
DX: M25.561 Pain in right knee (principal)
CPT/HCPCS: 73721

== ENCOUNTER 2023-06-16 13:41 | Emergency (ER) | payer OTHER, BC, SELFPAY ==
[2023-06-16 13:50] VITALS: BP 143/83; PULSE 75; RESP 20; TEMP 36.4; O2SAT 96
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
[2023-06-16 17:37] VITALS: BP 125/87; PULSE 80; RESP 19; O2SAT 100
== END 2023-06-16 17:41 | disposition home or self-care (01) ==
LOC: ANHED 17:38
PROVIDERS: Emergency Provider Emergency Medicine; PCP Family Medicine
DX: S16.1XXA Strain of muscle, fascia and tendon at neck level, initial encounter (principal); E78.2 Mixed hyperlipidemia; N32.81 Overactive bladder; D47.3 Essential (hemorrhagic) thrombocythemia; K21.9 Gastro-esophageal reflux disease without esophagitis; Z90.710 Acquired absence of both cervix and uterus; V43.52XA Car driver injured in collision with other type car in traffic accident, initial encounter
CPT/HCPCS: 99283

== ENCOUNTER 2023-08-28 09:53 | Outpatient (CLI) | payer BC, SELFPAY ==
--- NOTE | ~2023-08-28 | XR_ITS ---
EXAMINATION: XR chest 2V DATE: 08/28/2023 10:16 INDICATION: Cough TECHNIQUE: PA and lateral views of the chest are obtained. COMPARISON: 04/15/2022 FINDINGS: The lungs are free of acute opacities. No pleural effusion or pneumothorax. The cardiomedia stinal silhouette is normal. There is moderate thoracic spondylosis. IMPRESSION: 1. No acute cardiopulmonary abnormality. Reviewed, dictated and finalized at location L. L SPLITTER
[2023-08-28 10:46] LABS: SARS-CoV-2 RNA PCR Negative (Negative)
== END 2023-08-28 09:54 | disposition home or self-care (01) ==
PROVIDERS: PCP Family Medicine; Visit Provider Physician Assistant
DX: R05.9 Cough, unspecified (principal)
CPT/HCPCS: 71046; 87635

== ENCOUNTER 2025-03-06 11:00 | Outpatient (CLI) | payer OTHER, SELFPAY ==
--- NOTE | ~2025-03-06 | DEXA_ITS ---
Bone Density Report Name: ESDRAS TOWNSEND Age: 60 Sex: Female Ethnicity: White Date of : 1965 Indication: osteopenia; Referring Provider: JAY PERALTA Study: Bone densitometry was performed. Exam Date: March 06, 2025 Accession number: [id number] Bone Density: Region BMD T-score Z-score Classification AP Spine(L1-L4) 0.860 -1.7 -0.1 Osteopenia Femoral Neck (Left) 0.657 -1.7 -0.3 Osteopenia Total Hip (Left) 0.797 -1.2 -0.1 Osteopenia Femoral Neck (Right) 0.687 -1.5 -0.1 Osteopenia Total Hip (Right) 0.811 -1.1 0.0 Osteopenia Total Hip Mean 0.804 -1.2 -0.1 Osteopenia World Health Organization criteria for BMD impression classify patients as: Normal (T-score at or above -1.0), Osteopenia (T-score between -1.0 and -2.5), or Osteoporosis (T-score at or below -2.5). 10-year Fracture Risk(1): Major Osteoporotic Fracture 9.2% Hip Fracture 1.0% Reported Risk Factors: [place] (), Neck BMD=0.657, BMI=24.7 (1) FRAX(R) Version 3.08. Fracture probability calculated for an untreated patient. Fracture probability may be lower if the patient has received treatment. Previous Exams: -- Region Exam Age BMD T-score BMD Change BMD Change Date g/cm2 vs Baseline vs Previous -- AP Spine (L1-L4) 03/06/2025 60 0.860 -1.7 1.3% 1.3% 01/15/2023 58 0.849 -1.8 Total Hip(Left) 03/06/2025 60 0.797 -1.2 2.8% 2.8% 01/15/2023 58 0.776 -1.4 Total Hip(Right) 03/06/2025 60 0.811 -1.1 6.5%* 6.5%* 01/15/2023 58 0.762 -1.5 -- *Denotes significance at 95% confidence level, LSC for AP Spine = 0.022 g/cm2, LSC for Total Hip = 0.027 g/cm2 Clinical Information Provided by Patient: Has used the following medications: Fosamax (i.e. alendronate), Vitamin D, Calcium Patient maximum height was 68 Menopause Age: 53 Drinks caffeinated beverages Onset of menses at age 10 Number of children 0 Impression: The patient has low bone mass, based on the Total Spine T-score. The patient has an estimated ten-year risk of hip fracture of 1% and an estimated ten-year risk of major fracture of 9.2%, based on the WHO FRAX algorithm. No significant bone loss was observed. Discussion: BONE DENSITY IS LOW AT ONE OR MORE SKELETAL SITES. This patient's lowest T-score is low at one or more skeletal sites. It meets the World Health Organization's (WHO) criteria for ?low bone mass? (T-score between -1.0 and -2.5). The patient's 10-year risk of fracture as calculated by FRAX is less than the threshold where pharmacological therapy is recommended by the National Osteoporosis Foundation (NOF). However, all treatment decisions require clinical judgment and consideration of individual patient factors, including patient preferences, comorbidities, previous drug use, risk factors not captured in the FRAX model (e.g., frailty, falls, vitamin D deficiency, increased bone turnover, interval significant decline in bone density) and possible under or overestimation of fracture risk by FRAX. The patient should follow a healthful lifestyle (good nutrition with adequate calcium and vitamin D, and appropriate weight-bearing exercise). Follow-Up: Consider repeating this study in 2 to 3 years to reassess this patient's status, or sooner if there is some new clinical indication. Reported by: WILMER on 03/06/2025 11:16:00 AM. Reviewed, dictated and finalized at location A.
== END 2025-03-06 11:01 | disposition home or self-care (01) ==
LOC: MICIMG 11:00
PROVIDERS: PCP Family Medicine; Visit Provider Student in an Organized Health Care Education/Training Program
DX: M85.89 Other specified disorders of bone density and structure, multiple sites (principal); Z78.0 Asymptomatic menopausal state
CPT/HCPCS: 77080